=== PATIENT | male | born 1960 | race Two or more races ===

== ENCOUNTER 2019-01-14 08:26 | Inpatient (IN) | payer SELFPAY ==
[~2019-01-14] VITALS: Ht 165.1 cm; Wt 60.8 kg
[2019-01-14] MEDS ORDERED: chlordiazePOXIDE 25mg Cap ORAL ONE (08:30)
[2019-01-14] MEDS ORDERED: NIFEdipine 10mg cap ORAL ONE (08:30)
--- NOTE | 2019-01-14 08:35 | Emergency Room Report ---
History of Present Illness General Chief Complaint: Hypertension Source: Patient Present Illness HPI An approximately 62-year-old male presents with high blood pressure, patient is altered refusing to answer questions may be underlying psychiatric illness versus organic, patient selectively answers questions, he does not give a name, he denies any complaints, he will not state whether he takes any medications or uses any drugs, history is very limited to uncooperative patient. Patient was brought in by EMS patient was sitting at a bus stop, found him to have a elevated blood pressure greater than 200 systolic Allergies: Coded Allergies: UNABLE TO ASSESS (Unverified , 01/14/19) Patient refusing to answer questions Patient History Past Medical History: see triage record Reviewed Nursing Documentation: PMH: Agreed; PSxH: Agreed Nursing Documentation-PMH Past Medical History: No Stated History Review of Systems All Other Systems: limited - Unable to obtain secondary to patient's uncooperativeness Physical Exam Vital Signs Date Time Temp Pulse Resp B/P (MAP) Pulse Ox O2 Delivery O2 Flow Rate FiO2 01/14/19 08:27 84 20 243/161 (188) 97 Room Air Sp02 EP Interpretation: reviewed, normal General Appearance: no apparent distress, alert, other - Patient is disheveled Head: normocephalic, atraumatic Eyes: bilateral eye PERRL, bilateral eye EOMI ENT: uvula midline, moist mucus membranes Neck: supple, thyroid normal, supple/symm/no masses Respiratory: lungs clear, no respiratory distress, no retraction, no accessory muscle use Cardiovascular #1: normal peripheral pulses, regular rate, rhythm, no edema, no gallop, no murmur Gastrointestinal: non tender, soft, no guarding, no rebound Musculoskeletal: normal inspection Neurologic: alert, responsive, other - He is not oriented, he is alert, responsive, moves all 4 extremities spontaneously Psychiatric: mood/affect normal Skin: no rash, warm/dry Procedures Critical Care Time Critical Care Time Given the critical condition in which the patient arrived, the patient was immediately assessed by myself and the nurse, and cardiac monitoring initiated due to the potential for rapid decompensation of the patient's clinical condition. During the course of the patient's stay, I spent a considerable amount of time at the bedside performing serial re-evaluations of the patient's hemodynamic and clinical status because of the recognized potential threat to life or limb in this condition. I then had a chance to review not only all of the available current laboratory and radiographic studies obtained today, but I also reviewed old records available to me at the time. 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 Sequential vital signs were obtained. Patient with hypertensive encephalopathy, with endorgan damage, aspirin, Plavix , Lovenox were given, blood pressure was reduced from systolic 250 down to 201, patient will be admitted to stepdown unit Critical Care time of 34 minutes was performed exclusive of billable procedures. Medical Decision Making Diagnostic Impression: Primary Impression: Hypertension Additional Impressions: Altered mental state Hypertensive encephalopathy NSTEMI (non-ST elevated myocardial infarction) ER Course Deric Martinez, approximately 62-year-old male presents with acute altered mental status, of known unknown etiology, possible infectious versus drug-induced Patient found to have elevated blood pressure, evidence of endorgan damage, patient's blood pressure was immediately controlled and brought down to 201 systolic from 240s, patient will be admitted to stepdown unit, patient endorsed to Dr. Phoenix Multiple re-evaluations of the patient has shown the patient to remain stable, with a little bit of tachycardia. Patient has remained hemodynamically stable Patient admitted to Dr. Phoenix 10:12AM Found to have elevated troponin, CKD, EKG Diagnostic Results EKG Time: 08:40 EP Interpretation: This rhythm, rate 82, ST depressions 1 to aVF, V5 V6, QTC 500, left axis de Rate: normal Rhythm: NSR ST Segments: other - Depressions as stated above, no acute ST elevations Rhythm Strip Diag. Results Rhythm Strip Time: 08:34 EP Interpretation: yes Rate: 89 Rhythm: NSR Chest X-Ray Diagnostic Results Chest X-Ray Diagnostic Results : Chest X-Ray Ordered: Yes # of Views/Limited/Complete: 1 View Indication: Other - Altered mental status EP Interpretation: Yes Interpretation: no consolidation, no effusion, no acute cardiopulmonary disease Impression: No acute disease Electronically Signed by: Harlan Crowe MD CT/MRI/US Diagnostic Results CT/MRI/US Diagnostic Results : Imaging Test Ordered: CT brain Impression Negative for acute intracranial bleed or mass-effect Last Vital Signs Date Time Temp Pulse Resp B/P (MAP) Pulse Ox O2 Delivery O2 Flow Rate FiO2 01/14/19 08:27 84 20 243/161 (188) 97 Room Air Disposition: ADMITTED INPATIENT Halran Crowe M.D. 15, 2019 08:35
--- NOTE | 2019-01-14 08:50 | NUR ---
ED Nurse Note: pt was brought in by ambulance from street. a bystander called 911. pt was sitting on the bus stop half naked and untidy. pt is confused, unable to provide identity, able to obey simple command. pt bp is high, 264/116. pt not in distress. pt appears to be untidy, no top shirt when arrive. seen by ermd, pt able to give urine, iv stablished on pt right ac with good blood return, blood drawn and sent to lab. iv started. pt able to tolerate po meds. will continue to monitor.
--- NOTE | 2019-01-14 08:53 | NUR ---
ED Nurse Note: xray on bedside
[2019-01-14 08:54] LABS: BASOPHILS % (AUTO) 0.6 % (0.0-2.0); EOSINOPHILS % (AUTO) 1.1 % (0.0-3.0); HEMATOCRIT 54.9 % (42.0-52.0); HEMOGLOBIN 17.5 G/DL (14.2-18.0); LYMPHOCYTES % (AUTO) 20.9 % (20.0-45.0); MEAN CORPUSCULAR VOLUME 87 FL (80-99); MONOCYTES % (AUTO) 7.3 % (1.0-10.0); NEUTROPHILS % (AUTO) 70.1 % (45.0-75.0); PLATELET COUNT 164 K/UL (150-450); RED CELL DISTRIBUTION WIDTH 13.2 % (11.6-14.8); WHITE BLOOD COUNT 8.1 K/UL (4.8-10.8)
[2019-01-14 08:58] VITALS: BP 264/116
[2019-01-14 08:59] LABS: APPEARANCE,URINE CLEAR; BILIRUBIN, URINE NEGATIVE (NEGATIVE); COLOR,URINE PALE YELLOW; GLUCOSE, URINE (UA) NEGATIVE (NEGATIVE); KETONES,URINE 2+ (NEGATIVE); LEUKOCYTE ESTERASE ,URINE NEGATIVE (NEGATIVE); NITRITE,URINE NEGATIVE (NEGATIVE); PH,URINE 7 (4.5-8.0); PROTEIN,URINE 3+ (NEGATIVE); UROBILINOGEN,URINE 1 MG/DL (0.0-1.0)
[2019-01-14] MEDS ORDERED: Thiamine 100mg tab ORAL ONE (09:00)
--- NOTE | 2019-01-14 09:00 | NUR ---
ED Nurse Note: pt went to ct with tech
[2019-01-14 09:21] LABS: ANION GAP 7 mmol/L (5-15); BLOOD UREA NITROGEN 30 mg/dL (7-18); CALCIUM 9.7 MG/DL (8.5-10.1); CARBON DIOXIDE 32 MMOL/L (21-32); CHLORIDE 111 MMOL/L (98-107); CREATININE 1.5 MG/DL (0.55-1.30); POTASSIUM 3.5 MMOL/L (3.5-5.1); SODIUM 150 MMOL/L (136-145)
[2019-01-14 09:24] LABS: AMMONIA 11 umol/L (11-32)
--- NOTE | 2019-01-14 09:25 | Diagnostic Imaging Report ---
Indications: Altered mental status Technique: Spiral acquisitions obtained through the brain. Angled axial and coronal 5 x 5 mm slices were reconstructed. Total dose length product 1445.66 mGycm. CTDI vol(s) 70.38 mGy. Dose reduction achieved using automated exposure control Comparison: None. Findings: Focal areas of encephalomalacia are seen in the high posterior parietal lobes bilaterally. Multiple old lacunar infarcts are demonstrated within the basal ganglia bilaterally. No acute intracranial hemorrhage or edema, mass effect, nor midline shift. Normal reveles-white differentiation. There is mild age-related enlargement of the ventricles and extra axial CSF spaces. There is some periventricular deep white matter low-attenuation consistent with chronic microvascular ischemic change. The visualized orbits and sinuses are unremarkable. The mastoids are clear. The calvarium is intact. Impression: Age-related volume loss and chronic microvascular ischemic changes. Old basal ganglia lacunar infarcts bilaterally. 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 Negative for acute intercranial bleed or mass effect The CT scanner at [facility] is accredited by the [employer] and the scans are performed using protocols designed to limit radiation exposure to as low as reasonably achievable to attain images of sufficient resolution adequate for diagnostic evaluation.
--- NOTE | 2019-01-14 09:30 | NUR ---
America werner in EDM - 01/14/19 at 1041 by KAYLEIGHO ED Nurse Note: Dr. Crowe notified regarding pt.'s troponin level of 0.067
--- NOTE | 2019-01-14 09:30 | NUR ---
ED Nurse Note: REPORTED TO DR. SOTO REHARDING PT.'S TROPONIN OF =0.073
[2019-01-14 09:34] LABS: ALANINE AMINOTRANSFERASE 20 U/L (12-78); ALBUMIN 4.3 G/DL (3.4-5.0); ALKALINE PHOSPHATASE 103 U/L (46-116); ASPARTATE AMINO TRANSFERASE 37 U/L (15-37); BILIRUBIN,DIRECT 0.3 MG/DL (0.0-0.3); BILIRUBIN,TOTAL 1.2 MG/DL (0.2-1.0); CREATINE KINASE 755 U/L (26-308)
[2019-01-14] MEDS ORDERED: Enoxaparin 80mg Inj SUBQ ONE (09:45)
[2019-01-14] MEDS ORDERED: Labetalol 5mg/ml 20ml vial IV ONE (09:45)
[2019-01-14 09:54] VITALS: BP 169/101
[2019-01-14 10:23] VITALS: BP 152/71
--- NOTE | 2019-01-14 10:49 | NUR ---
ED Nurse Note: PT IS ADMITTED TO THE HOSPITAL.GAVE REPORT TO VANESSA CHANDRA.
--- NOTE | 2019-01-14 10:50 | Diagnostic Imaging Report ---
Indication: Shortness of breath Technique: One view of the chest Comparison: None Findings: There is a questionable 1.4 cm nodular opacity projected in the right midlung periphery, projected over the scapular spine. The lungs and pleural spaces are otherwise clear. Heart size is upper limits of normal with a left ventricular hypertrophy configuration. The aorta is slightly ectatic calcified and tortuous. Impression: No acute process Questionable right midlung nodule. Further follow-up recommended. This finding was phoned to Dr. Crowe at the time of interpretation
--- NOTE | 2019-01-14 11:11 | NUR ---
ED Nurse Note: gave a courtesy call regarding the changed of admitting physician
[2019-01-14 12:30] VITALS: BP 142/94
--- NOTE | 2019-01-14 14:45 | NUR ---
NURSE NOTES: Patient transferred from [facility] to tele. Received report from PRATEEK Katz. Patient AOx1, open eyes spontaneously, not answering the questions, confused. Patient on room air, IV on right AC 20G, asymptomatic, patent, intact. VS at the time of arrival T 97.5, BP 149/95, on room air O2 Sat 98%, HR 98, no active s/s cardiac, respiratory distress noticed at this time. Bed in lowest position, side rails upx3, call light within reach, bed alarm on. Will continue to monitor.
--- NOTE | 2019-01-14 15:33 | NUR ---
NURSE NOTES: Patient unable to answer questions, will not state whether he takes any medications, unable to obtain past medical history.
[2019-01-14 16:00] VITALS: BP 147/95
--- NOTE | 2019-01-14 16:35 | NUR ---
NURSE NOTES: Per Dr. Marie , full code, social service for homelessness. Order noted, entered, carried out. Dr. Marie made aware patient troponin elevated, no order given at this time. Will continue to monitor.
--- NOTE | 2019-01-14 16:36 | NUR ---
NURSE NOTES: Asked Dr. Marie for psychiatric and cardiology consult, No order given at this time. Will continue to monitor.
[2019-01-14] MEDS: Lisinopril 20mg tab ORAL SCH (17:25)
[2019-01-14] MEDS ORDERED: Enoxaparin 30mg Inj SUBQ SCH (17:45)
--- NOTE | 2019-01-14 19:18 | NUR ---
HAND-OFF: Report given to PRATEEK Moise.
--- NOTE | 2019-01-14 19:20 | NUR ---
NURSE NOTES: Got report from Yenifer CHANDRA. Pt in stable condition. Denies any pain. No s/s of distress or discomfort noted. Pt resting in bed comfortably. Bed in low and locked position, call light within reach, bedside table within reach. Continue to monitor.
[2019-01-14 20:00] VITALS: BP 143/96
--- NOTE | 2019-01-14 20:25 | NUR ---
CASE MANAGEMENT: REVIEW 62Y/M BIBA FROM STREET CC: AMS SI: HTN . NSTEMI T 97.0 HR 109 RR 20 BP 243/161 SAT 97% ROOM AIR NA 150 BUN 30 CR 1.5 TCK 755 AMMONIA 36 TROPONIN 0.073 IS: ASA PO X1 HYDRALAZINE IV X1 LOVENOX SUBQ X1 PLAVIX PO X1 LABETALOL IV X1 NIFEDIPINE PO X1 NS IVF BOLUS X1 PATIENT ADMITTED TO TELEMETRY UNIT 01/14/2019 DCP: PATIENT REPORTS HOMELESSNESS
[2019-01-15] VITALS (8 sets, daily range): BP systolic 127–188; BP diastolic 80–123
--- NOTE | 2019-01-15 | History and Physical Report ---
DATE OF ADMISSION: 01/14/2019 HISTORY OF PRESENT ILLNESS: This is an approximately 62-year-old male, who was brought in by paramedics because of hypertension. The patient refuses to answer questions although his speech is fluent. He appears to be confused. He does not give any meaningful information. He states he has a history of hypertension and that is the only information he was able to give me. Code status believed to be Full in the absence of documentation. PAST MEDICAL HISTORY: Not known. SURGICAL HISTORY: Not known. ALLERGIES: None known. SOCIAL HISTORY: He appears to be homeless with unkempt appearance and dirt and grime under his toenails and fingernails. REVIEW OF SYSTEMS: Unreliable. PHYSICAL EXAMINATION: GENERAL: Reveals a middle-aged male. VITAL SIGNS: Blood pressure earlier was 240/160, currently is 140/90, heart rate is 94, respirations 18, and his O2 saturation is 95% on room air. HEENT: Unremarkable. LUNGS: Clear breath sounds bilaterally. ABDOMEN: Soft. EXTREMITIES: There is no edema. NEUROLOGIC: Nonfocal. General hygiene as discussed above. LABORATORY AND DIAGNOSTIC DATA: Lab testing shows normal CBC and BMP. Sodium is 150 and creatinine 1.5. Troponin 0.07. Alkaline phosphatase 755. Urine toxicology is negative. Urinalysis is negative. IMAGING STUDIES: An X-ray of the chest shows questionable right mid lung nodule, otherwise unremarkable. CT brain is negative except for old basal ganglia infarcts bilaterally. IMPRESSION: 1. Previous CVA. 2. Lung nodule. 3. Hypertensive urgency. 4. Encephalopathy, either hypertensive or toxic metabolic. DISCUSSION: Currently, his tox screen is negative. He does not have the stigmata of liver disease. We will check a serum ammonia. We will provide blood pressure control with lisinopril and clonidine. We will add intravenous fluids for hyponatremia. We will obtain porter sample case social work consult for homelessness. Jarod Marie M.D. DR: MANI JOB#: [id number] CC:
--- NOTE | 2019-01-15 07:00 | NUR ---
HAND-OFF: Report given to Mike CHANDRA. Endorsed plan of care.
--- NOTE | 2019-01-15 07:05 | NUR ---
NURSE NOTES: Received patient and report from PRATEEK Duong. Denies any pain. No s/s of distress or discomfort noted. Patient is resting in bed comfortably. Bed in low and locked position, brakes engaged for safety. Call light within reach, bedside table within reach. Continue with the plan of care.
[2019-01-15 07:18] LABS: BASOPHILS % (AUTO) 0.6 % (0.0-2.0); EOSINOPHILS % (AUTO) 1.8 % (0.0-3.0); HEMATOCRIT 50.9 % (42.0-52.0); HEMOGLOBIN 16.7 G/DL (14.2-18.0); LYMPHOCYTES % (AUTO) 24.5 % (20.0-45.0); MEAN CORPUSCULAR VOLUME 88 FL (80-99); MONOCYTES % (AUTO) 6.4 % (1.0-10.0); NEUTROPHILS % (AUTO) 66.7 % (45.0-75.0); PLATELET COUNT 158 K/UL (150-450); RED BLOOD COUNT 5.81 M/UL (4.70-6.10); RED CELL DISTRIBUTION WIDTH 13.3 % (11.6-14.8); WHITE BLOOD COUNT 9.2 K/UL (4.8-10.8)
[2019-01-15 07:49] LABS: ANION GAP 6 mmol/L (5-15); BLOOD UREA NITROGEN 26 mg/dL (7-18); CALCIUM 9.5 MG/DL (8.5-10.1); CARBON DIOXIDE 30 MMOL/L (21-32); CHLORIDE 113 MMOL/L (98-107); CHOLESTEROL 197 MG/DL (< 200); CREATININE 1.5 MG/DL (0.55-1.30); HDL CHOLESTEROL 34 MG/DL (40-60); POTASSIUM 3.8 MMOL/L (3.5-5.1); SODIUM 149 MMOL/L (136-145); TRIGLYCERIDES 123 MG/DL (30-150)
[2019-01-15] MEDS: Lisinopril 20mg tab ORAL SCH ×2 (08:00→17:29)
--- NOTE | 2019-01-15 08:10 | NUR ---
NURSE NOTES: Patient's BP 188/123. PRN medication given. aware.
--- NOTE | 2019-01-15 09:00 | NUR ---
NURSE NOTES: Rechecked BP 162/100. Will continue to monitor.
--- NOTE | 2019-01-15 10:59 | NUR ---
Social Service Note SW familiar with patient by seeing him often at the bus stop and along [address]. Patient responded to [place] however is not answering questions appropriately. Patient appears he may be responding to internal stimuli. Patient looking around the room making hand gestures and would not provide direct eye contact. Patient with a backpack which is empty. Patient with no identifying paper in pockets of pants and jacket. Dr. Marie also spoke to patient in [place] language and patient didn't respond appropriately. Tox screen is negative. SW will continue to screen patient throughout hospital stay.
[2019-01-15] MEDS: Aspirin EC 325mg tab ORAL SCH (12:26)
--- NOTE | 2019-01-15 12:30 | NUR ---
NURSE NOTES: BP 178/113. PRN med administered. Dr. Marie aware. Will continue to monitor patient.
--- NOTE | 2019-01-15 12:52 | Pulmonology Progress Note ---
Assessment/Plan Assessment/Plan IMPRESSION: 1. Previous CVA. 2. Lung nodule. 3. Hypertensive urgency. 4. Encephalopathy, either hypertensive or toxic metabolic. DISCUSSION: Currently, his tox screen is negative. He does not have the stigmata of liver disease. Await serum ammonia. I will provide blood pressure control with lisinopril and clonidine. Continue intravenous fluids for hypernatremia. Social work consult for homelessness. Subjective Interval Events: None new Constitutional: Reports: no symptoms HEENT: Repors: no symptoms Respiratory: Reports: no symptoms Cardiovascular: Reports: no symptoms Gastrointestinal/Abdominal: Reports: no symptoms Genitourinary: Reports: no symptoms Neurologic: Reports: confusion Allergies: Coded Allergies: UNABLE TO ASSESS (Unverified , 01/14/19) Patient refusing to answer questions Objective Last 24 Hour Vital Signs Date Time Temp Pulse Resp B/P (MAP) Pulse Ox O2 Delivery O2 Flow Rate FiO2 01/15/19 12:26 162/100 01/15/19 09:00 Room Air 01/15/19 08:00 96 01/15/19 08:00 98.0 85 20 188/123 (144) 98 01/15/19 08:00 188/123 01/15/19 07:59 188/123 01/15/19 04:25 83 01/15/19 04:20 97.0 83 20 139/80 (99) 96 01/15/19 01:00 148/90 (109) 01/15/19 00:26 Room Air 01/15/19 00:03 160/100 01/15/19 00:00 98.1 90 20 160/100 (120) 98 01/15/19 00:00 93 01/14/19 21:00 Room Air 01/14/19 20:00 97.8 93 18 143/96 (112) 97 01/14/19 20:00 85 01/14/19 17:25 147/95 01/14/19 16:00 97.7 89 20 147/95 (112) 98 01/14/19 16:00 76 01/14/19 13:03 Room Air Intake and Output 01/14/19 01/15/19 19:00 07:00 Intake Total 120 ml Balance 120 ml Intake Oral 120 ml # Voids 2 2 General Appearance: no acute distress HEENT: normocephalic Respiratory/Chest: chest wall non-tender, lungs clear Cardiovascular: normal peripheral pulses, normal rate Abdomen: normal bowel sounds, no organomegaly Laboratory Tests 01/14/19 17:32: Ammonia 36H 01/15/19 05:19: White Blood Count 9.2, Red Blood Count 5.81, Hemoglobin 16.7, Hematocrit 50.9, Mean Corpuscular Volume 88, Mean Corpuscular Hemoglobin 28.7, Mean Corpuscular Hemoglobin Concent 32.8, Red Cell Distribution Width 13.3, Platelet Count 158, Mean Platelet Volume 10.1, Neutrophils (%) (Auto) 66.7, Lymphocytes (%) (Auto) 24.5, Monocytes (%) (Auto) 6.4, Eosinophils (%) (Auto) 1.8, Basophils (%) (Auto ) 0.6, Sodium Level 149H, Potassium Level 3.8, Chloride Level 113H, Carbon Dioxide Level 30, Anion Gap 6, Blood Urea Nitrogen 26H, Creatinine 1.5H, Estimat Glomerular Filtration Rate 47.7, Glucose Level 82, Calcium Level 9.5, Magnesium Level 2.5H, Triglycerides Level 123, Cholesterol Level 197, LDL Cholesterol 135H, HDL Cholesterol 34L, Cholesterol/HDL Ratio 5.8H, Thyroid Stimulating Hormone (TSH) 0.997 Current Medications Medications (Trade) Dose Ordered Sig/Randall Route PRN Reason Start Time Stop Time Status Last Admin Dose Admin Aspirin (Ecotrin) 325 mg DAILY ORAL 01/15/19 09:00 02/14/19 08:59 01/15/19 12:26 Clonidine HCl (Catapres Tab) 0.1 mg Q4H PRN ORAL SBP>150 mmHg 01/14/19 12:45 02/13/19 12:44 01/15/19 12:26 Dextrose (Dextrose 50%) 25 ml Q30M PRN IV Hypoglycemia 01/14/19 16:45 02/13/19 16:44 Dextrose (Dextrose 50%) 50 ml Q30M PRN IV Hypoglycemia 01/14/19 16:45 02/13/19 16:44 Enoxaparin Sodium (Lovenox) 40 mg Q24H SUBQ 01/15/19 18:00 02/13/19 17:44 Lisinopril (Prinivil) 20 mg BID ORAL 01/14/19 18:00 02/13/19 17:59 01/15/19 08:00 Sodium Chloride 1,000 ml @ 75 mls/hr [id number] IV 01/14/19 17:32 02/13/19 17:31 01/15/19 12:27 Jarod Marie MD Jan 15, 2019 12:52
--- NOTE | 2019-01-15 16:07 | NUR ---
CASE MANAGEMENT:REVIEW 01/15/19 SI: ENCEPHALOPATHY HYPERTENSIVE URGENCY. LUNG NODULE 98.1 89 20 178/113 98% ON RA BUN+26 CR+1.5 IS: ASA PO QD LOVENOX SQ Q24 LISINOPRIL PO BID IVF@75/HR : TELEMETRY STATUS
--- NOTE | 2019-01-15 16:07 | NUR ---
NURSE NOTES: Patient has not had urine output. Bladder scan revealled urine of 488mls. Notified Dr. Marie. New order for in and out catheterization. Will carry out order.
--- NOTE | 2019-01-15 17:00 | NUR ---
NURSE NOTES: In and out catheter done. 500mls urine output. MD notified.
[2019-01-15] MEDS: Enoxaparin 40mg Inj SUBQ SCH (17:30)
--- NOTE | 2019-01-15 18:53 | Cardiology Report ---
APPROVED REPORT EKG Measurement Heart [id number] NM 150P60 [id number] Normal sinus rhythm Possible Left atrial enlargement Prolonged QT Abnormal ECG
--- NOTE | 2019-01-15 19:13 | NUR ---
HAND-OFF: Report given to PRATEEK Osorio. Patient is in stable condition.
--- NOTE | 2019-01-15 19:45 | NUR ---
NURSE NOTES: RECEIVED PATIENT RESTING IN BED, CONFUSED. FALL PRECAUTIONS IN PLACE: CALL LIGHT, BEDSIDE TABLE AND URINAL WITHIN REACH, BED IN LOW POSITION AND BED ALARM ON. WILL CONTINUE WITH PLAN OF CARE.
[2019-01-16] VITALS (7 sets, daily range): BP systolic 131–168; BP diastolic 62–99
--- NOTE | 2019-01-16 02:31 | NUR ---
HAND-OFF: Report given to Adan BUCHANAN RN. PATIENT RESTING IN BED, NO SIGNS OF DISTRESS NOTED.
--- NOTE | 2019-01-16 02:32 | NUR ---
NURSE NOTES: Got report from Raina CHANDRA. Pt in stable condition. Continue to monitor.
--- NOTE | 2019-01-16 07:23 | NUR ---
CASE MANAGEMENT:REVIEW 01/16/19 SI: ENCEPHALOPATHY HYPERTENSIVE URGENCY. LUNG NODULE 98.0 73 18 162/82 98% ON RA IS: ASA PO QD LOVENOX SQ Q24 LISINOPRIL PO BID IVF@75/HR : TELEMETRY STATUS DCP: ??? PLAN: DC PLAN UNCONFIRMED D/T BEING BOTH UNINSURED AND EXPERIENCING LOSS OF MEMORY
--- NOTE | 2019-01-16 07:28 | NUR ---
HAND-OFF: Report given to Mike CHANDRA. Endorsed plan of care.
--- NOTE | 2019-01-16 07:29 | NUR ---
NURSE NOTES: Received patient and report from PRATEEK Palomino. No s/s of pain noted. No s/s of distress or discomfort noted. Patient is resting in bed. Bed in low and locked position, brakes engaged for safety. Call light within reach, bedside table within reach. Will continue with the plan of care.
[2019-01-16 07:34] LABS: BASOPHILS % (AUTO) 0.8 % (0.0-2.0); EOSINOPHILS % (AUTO) 2.7 % (0.0-3.0); HEMATOCRIT 46.5 % (42.0-52.0); HEMOGLOBIN 15.1 G/DL (14.2-18.0); LYMPHOCYTES % (AUTO) 23.2 % (20.0-45.0); MEAN CORPUSCULAR VOLUME 87 FL (80-99); MONOCYTES % (AUTO) 6.9 % (1.0-10.0); NEUTROPHILS % (AUTO) 66.4 % (45.0-75.0); PLATELET COUNT 131 K/UL (150-450); RED BLOOD COUNT 5.34 M/UL (4.70-6.10); RED CELL DISTRIBUTION WIDTH 13.2 % (11.6-14.8); WHITE BLOOD COUNT 6.3 K/UL (4.8-10.8)
[2019-01-16 07:54] LABS: ANION GAP 9 mmol/L (5-15); BLOOD UREA NITROGEN 33 mg/dL (7-18); CALCIUM 8.6 MG/DL (8.5-10.1); CARBON DIOXIDE 27 MMOL/L (21-32); CHLORIDE 109 MMOL/L (98-107); CREATININE 1.4 MG/DL (0.55-1.30); POTASSIUM 3.3 MMOL/L (3.5-5.1); SODIUM 145 MMOL/L (136-145)
[2019-01-16] MEDS: Aspirin EC 325mg tab ORAL SCH (08:08)
[2019-01-16] MEDS: Lisinopril 20mg tab ORAL SCH ×2 (08:14→16:56)
--- NOTE | 2019-01-16 08:28 | Pulmonology Progress Note ---
Assessment/Plan Assessment/Plan IMPRESSION: 1. Previous CVA. 2. Lung nodule. 3. Hypertensive urgency. 4. Encephalopathy, either hypertensive or toxic metabolic. DISCUSSION: Currently, his tox screen is negative. He does not have the stigmata of liver disease. Borderline high serum ammonia. I will provide blood pressure control with lisinopril and clonidine. Continue intravenous fluids for hypernatremia. Social work consult for homelessness. Subjective Interval Events: No change; ammonia borderline high Constitutional: Reports: no symptoms HEENT: Repors: no symptoms Respiratory: Reports: no symptoms Cardiovascular: Reports: no symptoms Gastrointestinal/Abdominal: Reports: no symptoms Genitourinary: Reports: no symptoms Allergies: Coded Allergies: UNABLE TO ASSESS (Unverified , 01/14/19) Patient refusing to answer questions Objective Last 24 Hour Vital Signs Date Time Temp Pulse Resp B/P (MAP) Pulse Ox O2 Delivery O2 Flow Rate FiO2 01/16/19 08:16 168/99 01/16/19 08:14 168/99 01/16/19 04:50 155/86 (109) 01/16/19 04:19 98.0 73 18 162/82 (108) 98 01/16/19 04:01 77 01/16/19 03:47 162/82 01/16/19 00:00 63 01/16/19 00:00 98.9 58 18 131/62 (85) 96 01/15/19 21:38 159/83 01/15/19 21:00 Room Air 01/15/19 20:00 87 01/15/19 20:00 97.5 87 18 159/83 (108) 95 01/15/19 17:29 127/82 01/15/19 16:00 66 01/15/19 16:00 97.7 77 20 127/82 (97) 01/15/19 12:26 162/100 01/15/19 12:00 88 01/15/19 12:00 98.1 89 20 178/113 (134) 98 01/15/19 09:00 92 162/100 (120) 01/15/19 09:00 Room Air Intake and Output 01/15/19 01/16/19 19:00 07:00 Intake Total 795 ml 475 ml Output Total 500 ml Balance 295 ml 475 ml Intake Oral 720 ml IV Total 75 ml 475 ml Output Urine Total 500 ml # Voids 5 General Appearance: no acute distress HEENT: normocephalic Respiratory/Chest: chest wall non-tender, lungs clear Cardiovascular: normal peripheral pulses, normal rate Abdomen: normal bowel sounds Extremities: no cyanosis Microbiology Date/Time Source Procedure Growth Status 01/14/19 09:00 Rectum VRE Culture - Final NO VANCOMYCIN RESISTANT ENTEROCOCCUS ... Resulted 01/14/19 09:00 Rectum Pending Resulted Laboratory Tests 01/16/19 05:13: White Blood Count 6.3, Red Blood Count 5.34, Hemoglobin 15.1, Hematocrit 46.5, Mean Corpuscular Volume 87, Mean Corpuscular Hemoglobin 28.2, Mean Corpuscular Hemoglobin Concent 32.4, Red Cell Distribution Width 13.2, Platelet Count 131L, Mean Platelet Volume 9.9, Neutrophils (%) (Auto) 66.4, Lymphocytes (%) (Auto) 23.2, Monocytes (%) (Auto) 6.9, Eosinophils (%) (Auto) 2.7, Basophils (%) (Auto ) 0.8, Sodium Level 145, Potassium Level 3.3L, Chloride Level 109H, Carbon Dioxide Level 27, Anion Gap 9, Blood Urea Nitrogen 33H, Creatinine 1.4H, Estimat Glomerular Filtration Rate 51.7, Glucose Level 80, Calcium Level 8.6 Current Medications Medications (Trade) Dose Ordered Sig/Randall Route PRN Reason Start Time Stop Time Status Last Admin Dose Admin Aspirin (Ecotrin) 325 mg DAILY ORAL 01/15/19 09:00 02/14/19 08:59 01/16/19 08:08 Clonidine HCl (Catapres Tab) 0.1 mg Q4H PRN ORAL SBP>150 mmHg 01/14/19 12:45 02/13/19 12:44 01/16/19 08:16 Dextrose (Dextrose 50%) 25 ml Q30M PRN IV Hypoglycemia 01/14/19 16:45 02/13/19 16:44 Dextrose (Dextrose 50%) 50 ml Q30M PRN IV Hypoglycemia 01/14/19 16:45 02/13/19 16:44 Enoxaparin Sodium (Lovenox) 40 mg Q24H SUBQ 01/15/19 18:00 02/13/19 17:44 01/15/19 17:30 Lisinopril (Prinivil) 20 mg BID ORAL 01/14/19 18:00 02/13/19 17:59 01/16/19 08:14 Sodium Chloride 1,000 ml @ 75 mls/hr [id number] IV 01/14/19 17:32 02/13/19 17:31 01/15/19 21:38 Jarod Marie MD Jan 16, 2019 08:28
[2019-01-16] MEDS ORDERED: 1/2 NS 1000ml IV ONE (15:32)
--- NOTE | 2019-01-16 16:51 | NUR ---
Social Service Note Patient continues to respond to internal stimuli. Patient not answering questions appropriately. However when asked his name he states Scott, patient couldn't provide spelling, last name or date of . Will continue to follow up.
[2019-01-16] MEDS: Enoxaparin 40mg Inj SUBQ SCH (16:57)
--- NOTE | 2019-01-16 19:58 | NUR ---
HAND-OFF: Report given to PRATEEK Clemente.Patient is in stable condition.
--- NOTE | 2019-01-16 20:00 | NUR ---
NURSE NOTES: pt in bed, pt alert and confused. no acute distress noted. falling precaution in place: bed locked an lowest position. bedside rail up x2. will round pt hourly to ensure pt safety and assess for any change in condition.
[2019-01-17] VITALS: BP 169/106
--- NOTE | 2019-01-17 | NUR ---
NURSE NOTES: pt's BP. PRN med administered. will continue to monitor for any change in condition.
[2019-01-17 04:00] VITALS: BP 148/99
--- NOTE | 2019-01-17 04:00 | NUR ---
NURSE NOTES: pt sleeping,no change in condition. will continue to monitor pt for any change in condition.
--- NOTE | 2019-01-17 06:53 | NUR ---
NURSE NOTES: pt remains stable, no change in condition. falling precaution in place: bed locked and lowest position, bedside rail up x2, call light within reach. all needs met during my shift. will endorse plan of care to incoming nurse.
[2019-01-17 07:41] LABS: ANION GAP 8 mmol/L (5-15); BLOOD UREA NITROGEN 29 mg/dL (7-18); CARBON DIOXIDE 27 MMOL/L (21-32); CHLORIDE 109 MMOL/L (98-107); CREATININE 1.3 MG/DL (0.55-1.30); POTASSIUM 3.5 MMOL/L (3.5-5.1); SODIUM 144 MMOL/L (136-145)
--- NOTE | 2019-01-17 07:55 | NUR ---
CASE MANAGEMENT:REVIEW 01/17/19 SI: ENCEPHALOPATHY HYPERTENSIVE URGENCY. LUNG NODULE 97.9 70 18 148/99 100% ON RA IS: ASA PO QD LOVENOX SQ Q24 LISINOPRIL PO BID IVF@75/HR : TELEMETRY STATUS DCP: ??? PLAN: DC PLAN UNCONFIRMED D/T BEING BOTH UNINSURED AND EXPERIENCING LOSS OF MEMORY CONTINUE HYDRATION AND CARDIAC MONITORING
[2019-01-17 08:00] VITALS: BP 165/107
--- NOTE | 2019-01-17 08:33 | NUR ---
pt. in bed awake resting. Pt on childbirth educator no cardiac or respiratory distress. Call light with in reach, bed locked in lowest position. Pt does not know who he is where he is at or why he is here but is able to talk. Pt not complaining of pain. Will continue to follow plan of care.
[2019-01-17] MEDS: Aspirin EC 325mg tab ORAL SCH (09:30)
[2019-01-17] MEDS: Lisinopril 20mg tab ORAL SCH ×2 (09:34→16:59)
--- NOTE | 2019-01-17 09:59 | Pulmonology Progress Note ---
Assessment/Plan Assessment/Plan IMPRESSION: 1. Previous CVA. 2. Lung nodule. 3. Hypertensive urgency. 4. Encephalopathy, either hypertensive or toxic metabolic. DISCUSSION: Currently, his tox screen is negative. He does not have the stigmata of liver disease. Borderline high serum ammonia. I will provide blood pressure control with lisinopril and clonidine. Continue intravenous fluids for hypernatremia. Social work consult for homelessness. Subjective Interval Events: None new Constitutional: Reports: no symptoms HEENT: Repors: no symptoms Respiratory: Reports: no symptoms Cardiovascular: Reports: no symptoms Gastrointestinal/Abdominal: Reports: no symptoms Allergies: Coded Allergies: UNABLE TO ASSESS (Unverified , 01/14/19) Patient refusing to answer questions Objective Last 24 Hour Vital Signs Date Time Temp Pulse Resp B/P (MAP) Pulse Ox O2 Delivery O2 Flow Rate FiO2 01/17/19 09:34 165/107 01/17/19 04:00 67 01/17/19 04:00 97.9 70 18 148/99 (115) 100 01/17/19 00:05 169/109 01/17/19 00:00 68 01/17/19 00:00 97.8 75 18 169/106 (127) 99 01/16/19 21:00 Room Air 01/16/19 20:00 97.1 71 18 149/99 (116) 99 01/16/19 20:00 68 01/16/19 16:56 149/82 01/16/19 16:00 97.5 66 18 133/77 (95) 97 01/16/19 16:00 64 01/16/19 12:00 97.2 65 18 132/92 (105) 98 01/16/19 12:00 71 Intake and Output 01/16/19 01/17/19 19:00 07:00 Intake Total 360 ml Output Total 500 ml Balance -140 ml Intake Oral 360 ml Output Urine Total 500 ml # Voids 4 3 General Appearance: no acute distress HEENT: normocephalic Respiratory/Chest: chest wall non-tender, lungs clear Cardiovascular: normal peripheral pulses, normal rate Abdomen: normal bowel sounds Laboratory Tests 01/17/19 05:30: Sodium Level 144, Potassium Level 3.5, Chloride Level 109H, Carbon Dioxide Level 27, Anion Gap 8, Blood Urea Nitrogen 29H, Creatinine 1.3, Estimat Glomerular Filtration Rate 56.3, Glucose Level 76, Calcium Level 9.0 Current Medications Medications (Trade) Dose Ordered Sig/Randall Route PRN Reason Start Time Stop Time Status Last Admin Dose Admin Aspirin (Ecotrin) 325 mg DAILY ORAL 01/15/19 09:00 02/14/19 08:59 01/17/19 09:30 Clonidine HCl (Catapres Tab) 0.1 mg Q4H PRN ORAL SBP>150 mmHg 01/14/19 12:45 02/13/19 12:44 01/17/19 00:05 Dextrose (Dextrose 50%) 25 ml Q30M PRN IV Hypoglycemia 01/14/19 16:45 02/13/19 16:44 Dextrose (Dextrose 50%) 50 ml Q30M PRN IV Hypoglycemia 01/14/19 16:45 02/13/19 16:44 Enoxaparin Sodium (Lovenox) 40 mg Q24H SUBQ 01/15/19 18:00 02/13/19 17:44 01/16/19 16:57 Lisinopril (Prinivil) 20 mg BID ORAL 01/14/19 18:00 02/13/19 17:59 01/17/19 09:34 Sodium Chloride 1,000 ml @ 75 mls/hr [id number] IV 01/14/19 17:32 02/13/19 17:31 01/17/19 06:21 Jarod Marie MD Jan 17, 2019 09:59
[2019-01-17 12:00] VITALS: BP 136/97
--- NOTE | 2019-01-17 12:39 | NUR ---
NURSE NOTES: pt continuously keeps taking off harm reduction worker. put harm reduction worker on pt again.
--- NOTE | 2019-01-17 12:46 | NUR ---
NURSE NOTES: Pt unable to state a safe place or where he might get food from. Pt maybe Gravely disabled. aware of nursing assessment.
--- NOTE | 2019-01-17 15:54 | NUR ---
Social Service Note Patient continues not to answer questions appropriately. Recommend psych consultation and PT eval. Will continue to monitor. Unable to establish patient's name.
[2019-01-17 16:00] VITALS: BP 166/99
--- NOTE | 2019-01-17 16:24 | NUR ---
SPEECH PATHOLOGY: EVALUATION ONLY: BEDSIDE SWALLOW EVALUATION COMPLETED POST CHART REVIEW AND INTERVIEW WITH RN. THIS PATIENT PRESENTS WITH EFFICACY OF OROPHARYNGEAL PHASE OF SWALLOW INTACT. NO OVERT S/S OF ASPIRATION WITH LIMITED P.O. TRIALS OF THIN LIQUID, SOFT SOLID AND PUREE. HOWEVER, HIS SIGNIFICANT BEHAVIOR/COGNITIVE DEFICITS PREVENT HIM FROM SELF FEEDING AND HE IS OPPOSITIONAL TO STAFF WHO ATTEMPT TO FEED HIM. HIS COGNITIVE/PSYCHIATRIC DEFICITS REQUIRE A SUPPORTED LIVING ENVIRONMENT IN ORDER TO MAINTAIN HIS HEALTH/SAFETY IN THE COMMUNITY. NO FURTHER SKILLED ST SERVICES APPEAR TO BE NEEDED AT THIS TIME. THANK YOU FOR THIS REFERRAL. D/W RN
[2019-01-17] MEDS: Enoxaparin 40mg Inj SUBQ SCH (17:01)
--- NOTE | 2019-01-17 17:05 | NUR ---
NURSE NOTES: pt took off clerk secretary again as well as IV access.
--- NOTE | 2019-01-17 18:00 | Consultation ---
DATE OF CONSULTATION: 01/17/2019 CONSULTING PHYSICIAN: Ivonne York M.D. HISTORY OF PRESENT ILLNESS: This is approximately middle-aged man who has been hospitalized since 01/14/2019. The patient is disheveled, malodorous, unable to provide any history or answer the questions appropriately. His speech is disorganized and he is jumping from one subject to another. The patient has memory impairment and anxious and is unable to provide any meaningful information. The patient has been observed around the hospital in the past and he is a homeless person. PAST PSYCHIATRIC HISTORY: Unknown. PAST MEDICAL HISTORY: Unknown. ALLERGIES: No known drug allergies. SUBSTANCE ABUSE HISTORY: The patient's system is negative for any illicit drug use or alcohol. MENTAL STATUS EXAMINATION: The patient is alert, oriented x0. Mood is neutral. Affect is flat. Thought process is disorganized. Thought content, no suicidal or homicidal ideation. Cognition is impaired. ASSESSMENT: Valentine I Schizophrenia, disorganized type. Valentine II Deferred. Valentine III None known. Valentine IV Moderate. Valentine V 10. PLAN: 1. We will start the patient on risperidone 2 mg at bedtime. 2. The patient lacks capacity to make decisions. 3. We will continue to follow and readjust the medications. Ivonne York M.D. DR: WENDY JOB#: [id number] CC:
--- NOTE | 2019-01-17 19:45 | NUR ---
NURSE NOTES: Received report from PRATEEK Zepeda. Patient in bed awake showing no signs of acute distress. Respiration even and non labored on room air. No sob noted. Pt. noted for removing laboratory monitor and IV consistently, MD Linda made aware. New orders received and carried out. Bed side rails up x3, Alarm on zone 2, wheels locked, bed in lowest position. Call light within reach. Will continue plan of care.
[2019-01-17 20:00] VITALS: BP 161/114
--- NOTE | 2019-01-17 20:17 | NUR ---
HAND-OFF: Report given to Meghan CHANDRA. pt in stable condition.
[2019-01-17] MEDS ORDERED: Haloperidol 5mg/ml Inj IM SCH (21:15)
[2019-01-17] MEDS ORDERED: LORazepam Inj 2mg/ml 1ml IM SCH (21:15)
[2019-01-17] MEDS ORDERED: DiphenhydrAMINE 50mg/ml Inj IM SCH (21:15)
[2019-01-18] VITALS: BP 135/89
--- NOTE | 2019-01-18 02:28 | NUR ---
NURSE NOTES: Pt. in bed asleep. VS stable. no episode of agitation, or pulling off device. Will continue to monitor.
[2019-01-18 04:00] VITALS: BP 145/86
--- NOTE | 2019-01-18 07:29 | NUR ---
HAND-OFF: Report given to PRATEEK Zepeda.
--- NOTE | 2019-01-18 07:39 | NUR ---
CASE MANAGEMENT:REVIEW 01/18/19 SI: ENCEPHALOPATHY HYPERTENSIVE URGENCY. LUNG NODULE 98.1 88 18 145/86 97% ON RA IS: RISPERDAL PO QHS ASA PO QD LOVENOX SQ Q24 LISINOPRIL PO BID IVF@75/HR : TELEMETRY STATUS DCP: ??? PLAN: DC PLAN UNCONFIRMED D/T BEING BOTH UNINSURED AND EXPERIENCING LOSS OF MEMORY CONTINUE HYDRATION AND CARDIAC MONITORING
[2019-01-18 08:00] VITALS: BP 121/90
--- NOTE | 2019-01-18 08:01 | NUR ---
NURSE NOTES: Pt is calmly sleeping in bed. child monitor is on, pt does not show any sign of cardiac or respiratory distress. Bed locked and in lowest position. Call light with in reach. Pt IV is patent running fluids. Will continue to follow plan of care.
[2019-01-18] MEDS: Lisinopril 20mg tab ORAL SCH ×2 (09:49→17:55)
[2019-01-18] MEDS: Aspirin EC 325mg tab ORAL SCH (09:49)
[2019-01-18 12:00] VITALS: BP 136/79
--- NOTE | 2019-01-18 12:09 | NUR ---
pt has been very sleepy all morning fed him breakfast 2 spoonfuls and at lunch he ate his soup. Pt was able to eat chew and swallow his food but didn't want to open his eyes.
--- NOTE | 2019-01-18 13:32 | NUR ---
PT NOTE Received MD order for PT evaluation. Attempted several times to see patient for PT evaluation. Patient sleeping, unable to arouse patient with verbal or tactile stimuli. Per Katelyn CHANDRA, patient medicated earlier with Ativan. Will re-attempt tomorrow.
--- NOTE | 2019-01-18 13:54 | Pulmonology Progress Note ---
Assessment/Plan Assessment/Plan IMPRESSION: 1. Previous CVA. 2. Lung nodule. 3. Hypertensive urgency. 4. Acute on Chronic Encephalopathy, either hypertensive or toxic metabolic. DISCUSSION: Currently, his tox screen is negative. He does not have the stigmata of liver disease. Borderline high serum ammonia. I will provide blood pressure control with lisinopril and clonidine. Continue intravenous fluids for hypernatremia. Social work consult for homelessness. Subjective Interval Events: Seen y psych; started on resperidal Constitutional: Reports: no symptoms HEENT: Repors: no symptoms Respiratory: Reports: no symptoms Cardiovascular: Reports: no symptoms Gastrointestinal/Abdominal: Reports: no symptoms Allergies: Coded Allergies: UNABLE TO ASSESS (Unverified , 01/14/19) Patient refusing to answer questions Objective Last 24 Hour Vital Signs Date Time Temp Pulse Resp B/P (MAP) Pulse Ox O2 Delivery O2 Flow Rate FiO2 01/18/19 12:00 98.3 83 18 136/79 (98) 95 01/18/19 12:00 63 01/18/19 09:49 121/90 01/18/19 09:00 Room Air 01/18/19 08:00 81 01/18/19 08:00 96.3 80 20 121/90 (100) 96 01/18/19 04:00 85 01/18/19 04:00 98.1 88 18 145/86 (105) 97 01/18/19 00:00 97.9 96 24 135/89 (104) 97 01/18/19 00:00 94 01/17/19 21:00 Room Air 01/17/19 20:00 97.8 84 24 161/114 (130) 97 01/17/19 20:00 73 01/17/19 16:59 166/99 01/17/19 16:00 97.1 70 20 166/99 (121) 95 01/17/19 16:00 80 Intake and Output 01/17/19 01/18/19 19:00 07:00 Intake Total 220 ml 296.25 ml Balance 220 ml 296.25 ml Intake Oral 220 ml IV Total 296.25 ml # Voids 1 2 General Appearance: no acute distress HEENT: normocephalic Respiratory/Chest: chest wall non-tender, lungs clear Cardiovascular: normal peripheral pulses Abdomen: normal bowel sounds Current Medications Medications (Trade) Dose Ordered Sig/Randall Route PRN Reason Start Time Stop Time Status Last Admin Dose Admin Aspirin (Ecotrin) 325 mg DAILY ORAL 01/15/19 09:00 02/14/19 08:59 01/18/19 09:49 Clonidine HCl (Catapres Tab) 0.1 mg Q4H PRN ORAL SBP>150 mmHg 01/14/19 12:45 02/13/19 12:44 01/17/19 00:05 Dextrose (Dextrose 50%) 25 ml Q30M PRN IV Hypoglycemia 01/14/19 16:45 02/13/19 16:44 Dextrose (Dextrose 50%) 50 ml Q30M PRN IV Hypoglycemia 01/14/19 16:45 02/13/19 16:44 Enoxaparin Sodium (Lovenox) 40 mg Q24H SUBQ 01/15/19 18:00 02/13/19 17:44 01/16/19 16:57 Lisinopril (Prinivil) 20 mg BID ORAL 01/14/19 18:00 02/13/19 17:59 01/18/19 09:49 Risperidone (RisperDAL) 2 mg BEDTIME ORAL 01/17/19 21:00 02/16/19 20:59 01/17/19 21:48 Sodium Chloride 1,000 ml @ 75 mls/hr [id number] IV 01/14/19 17:32 02/13/19 17:31 01/18/19 02:03 Jarod Marie MD Jan 18, 2019 13:54
--- NOTE | 2019-01-18 14:50 | NUR ---
NURSE NOTES: Pt had 2 voids, changed pt and bedding for him. He did not open his eyes and was very calm while we provided care.
--- NOTE | 2019-01-18 15:51 | NUR ---
Social Service Note Unable to identify patient. [facility] EW closing case at this time. Will continue to monitor.
[2019-01-18 16:00] VITALS: BP 143/87
[2019-01-18] MEDS: Enoxaparin 40mg Inj SUBQ SCH (17:56)
--- NOTE | 2019-01-18 19:30 | NUR ---
NURSE NOTES: Received patient from Katelyn CHANDRA. Patient in bed, on room air, no s/s respiratory distress. Bed in low position, locked, bed alarm on, call light within reach. Patient is alert and responsive, follows simple commands to move extremities, does not answer verbally, not even his name. Patient keeps his eyes closed all the time. IV on left forearm, dressing intact.
--- NOTE | 2019-01-18 19:40 | NUR ---
HAND-OFF: Report given to PRATEEK Mast pt in stable condition.
[2019-01-18 20:00] VITALS: BP 134/63
[2019-01-19] VITALS (13 sets, daily range): BP systolic 104–203; BP diastolic 71–125
--- NOTE | 2019-01-19 04:15 | Progress Note ---
DATE: 01/14/2019 SUBJECTIVE: The patient is calmer today. However, last night, he had an episode of agitation and received a cocktail shot. He is still confused, unable to answer the question. MENTAL STATUS EXAMINATION: The patient is alert, confused, disoriented. Mood is agitated. Affect is flat. Thought process, there is a paucity of thought content. Thought content, no suicidal or homicidal ideation. ASSESSMENT: Schizophrenia, disorganized type. The patient is unable to provide any self-care plan. PLAN: We will continue the current medications. Provide the patient with reality orientation and supportive therapy. Ivonne York M.D. DR: ANILA JOB#: [id number] CC:
--- NOTE | 2019-01-19 08:03 | Nephrology Progress Note ---
Assessment/Plan Assessment/Plan: A/P 1. Previous CVA. 2. Lung nodule. 3. Hypertensive urgency. Resolved 4. Acute on Chronic Encephalopathy - either hypertensive or toxic metabolic. Continue Social work consult for homelessness and placement Subjective Date patient seen: Jan 19, 2019 Time patient seen: 08:01 ROS Limited/Unobtainable: No Allergies: Coded Allergies: UNABLE TO ASSESS (Unverified , 01/14/19) Patient refusing to answer questions Subjective Patient without overt complaints Objective Last 24 Hour Vital Signs Date Time Temp Pulse Resp B/P (MAP) Pulse Ox O2 Delivery O2 Flow Rate FiO2 01/19/19 04:00 97.6 83 20 131/84 (100) 95 01/19/19 03:41 61 01/19/19 01:19 154/94 01/19/19 00:00 72 01/19/19 00:00 97.2 70 18 154/94 (114) 97 01/18/19 23:35 72 01/18/19 21:00 Room Air 01/18/19 20:00 98.6 84 16 134/63 (86) 98 01/18/19 19:29 57 01/18/19 17:55 143/87 01/18/19 16:00 62 01/18/19 16:00 98.6 68 18 143/87 (105) 100 01/18/19 12:00 98.3 83 18 136/79 (98) 95 01/18/19 12:00 63 01/18/19 09:49 121/90 01/18/19 09:00 Room Air Intake and Output 01/18/19 01/19/19 18:59 06:59 Intake Total 120 ml Balance 120 ml Intake Oral 120 ml # Voids 2 Height (Feet): 5 Height (Inches): 5.00 Weight (Pounds): 131 General Appearance: no apparent distress EENT: normal ENT inspection Neck: normal alignment, supple Cardiovascular: normal rate, regular rhythm Respiratory/Chest: lungs clear, normal breath sounds Abdomen: non tender, soft Edema: no edema noted Arm (L), no edema noted Arm (R), no edema noted Leg (L), no edema noted Leg (R), no edema noted Pedal (L), no edema noted Pedal (R), no edema noted Generalized César Quezada MD Jan 19, 2019 08:03
--- NOTE | 2019-01-19 08:11 | NUR ---
NURSE NOTES: Nurse report given by PRATEEK Doyle. Patient is awake and agitated. No sign of distress or SOB. Bed at lowest position, break engaged and call light within reach. AO x 0. Patient is confused and unable to tell his name and where he is. Will continue to monitor.
--- NOTE | 2019-01-19 09:00 | NUR ---
NURSE NOTES: Received Vivek's report about patient has not urinate the past 12 hours, he did bladder scan and patient retained 500ml. He tried straight cathether and nothing came out. I scanned his bladder again and he retained 700cc and his BP is 205/125, HR 97. I tried to do straight catheter and there is no flash back and met resistance, I stopped and withdrew, there is some blood at the tip noted. I contacted Dr. Quezada and he ordered Coreg 12.5mg PO BID, the first dose ordered at 0900; Flomax 0.4mg PO QHS, the first dose ordered at 0930. Dr. Quezada also ordered for urologist senior controls engineer. Dr Roberts is the urologist. I called his office and his staff member Biju took the call and stated: will page Dr. Roberts. Endorsed plan and waiting for Dr. Roberts to come see the patient.
[2019-01-19] MEDS: Aspirin EC 325mg tab ORAL SCH (09:22)
[2019-01-19] MEDS: Carvedilol 12.5mg tab ORAL SCH ×2 (09:24→20:35)
[2019-01-19] MEDS: Lisinopril 20mg tab ORAL SCH ×2 (09:24→17:37)
--- NOTE | 2019-01-19 10:00 | NUR ---
NURSE NOTES: Patient voided over the bed. Bladder scanned and he's having 87cc in the bladder. Notified Dr. Quezada and he acknowledge. Dr. Roberts called back and ordered d/c straight catheter. Order is acknowledge and carried out.
--- NOTE | 2019-01-19 14:24 | NUR ---
NURSE NOTES: Patient pulled out his IV and heart monitor. I contacted Dr. Sellers regarding his condition and he order restraint order putting in for him.
--- NOTE | 2019-01-19 16:47 | NUR ---
PT Note PT eval completed, treatment initiated. Patient is able to follow instructions but is o x 0. Patient was able to take 2 steps with mod/maxA. Patient needs PT to increase his muscle strength and balance to improve his functional mobility. Addendum: 01/19/19 at 1648 by DAYANNA MARTINEZ PT Amended: Links added.
[2019-01-19] MEDS: Enoxaparin 40mg Inj SUBQ SCH (17:38)
--- NOTE | 2019-01-19 19:15 | NUR ---
NURSE NOTES: Received patient from Cecilia CHANDRA. Patient in bed, awake, oriented x0, speaking non sensically. States his name is "Ali maybe." Anxious, resistant to care, slaps away staff's hands when attempting to give care.
--- NOTE | 2019-01-19 19:17 | NUR ---
HAND-OFF: Report given to PRATEEK Doyle. Patient's in stable condition, no sign of acute distress or SOB.
[2019-01-19] MEDS ORDERED: Tamsulosin 0.4mg cap ORAL SCH (21:00)
--- NOTE | 2019-01-19 22:40 | NUR ---
NURSE NOTES: Patient agitated, pulling off restraints, banging on the rails, tossing and turning, throwing linen on the floor. Notified Dr. York of patient's escalating agitation and that he is not redirectable. Received orders for Haldol 10mg, Ativan 2mg, Benadryl 50mg IM x1, HOB> 30 degrees, vitals q 15 minutes for 1 hour.
[2019-01-19] MEDS ORDERED: DiphenhydrAMINE 50mg/ml Inj IM ONE (22:45)
[2019-01-19] MEDS ORDERED: LORazepam Inj 2mg/ml 1ml IM ONE (22:45)
[2019-01-19] MEDS ORDERED: Haloperidol 5mg/ml Inj IM ONE (22:45)
--- NOTE | 2019-01-19 23:00 | NUR ---
NURSE NOTES: Administered IM medications, Vitals: 98.1- 80-28-203/124-96% on room air. Patient still agitated, kicking and pulling at restraints. Staff remained at bedside for safety. Addendum: 01/19/19 at 2311 by Vivek Mast RN NURSE NOTES: HOB >30 degrees.
--- NOTE | 2019-01-19 23:17 | NUR ---
NURSE NOTES: Patient still awake, moving around in bed, tugging at restraints.
--- NOTE | 2019-01-19 23:32 | NUR ---
NURSE NOTES: Patient appears more calm, eyes closed, light movements of legs, arms and head, moans occasionally. HOB >30 degrees, respirations even, unlabored, o2sat 95%.
--- NOTE | 2019-01-19 23:57 | NUR ---
NURSE NOTES: Vitals stable, WNL, see flow sheet. Patient asleep, snoring. On room air, O2sat 98%, HOB >30 degrees, no s/s of respiratory distress.
[2019-01-20 01:00] VITALS: BP 138/85
[2019-01-20 04:00] VITALS: BP 131/79
--- NOTE | 2019-01-20 07:25 | NUR ---
NURSE NOTES: Pt in bed in low position, HOB in semi fowlers position, restraints started on 01/19/19 at 1452 for combative bx, IV intact and patent, pt has no orientation and is a poor historian, labs have not been run since 01/16/19, no bowel movement since 01/14/19, pt has been eating and is a 1:1 feeder, currently no s/s of distress or sob noted. Last night nurse reported that the pt was combative and haldol ativan and benadryl for agitation, saw nursing order for further instructions.
--- NOTE | 2019-01-20 07:38 | NUR ---
HAND-OFF: Report given to Octavio CHANDRA. Plan of care endorsed.
[2019-01-20 08:22] VITALS: BP 165/95
--- NOTE | 2019-01-20 08:43 | Nephrology Progress Note ---
Assessment/Plan Assessment/Plan: A/P 1. Previous CVA. 2. Lung nodule. 3. Hypertensive urgency. Resolved. Coreg added 4. Acute on Chronic Encephalopathy - either hypertensive or toxic metabolic. - sedated ABD Xray and labs ordered today Subjective Date patient seen: Jan 20, 2019 Time patient seen: 08:41 ROS Limited/Unobtainable: Yes Allergies: Coded Allergies: UNABLE TO ASSESS (Unverified , 01/14/19) Patient refusing to answer questions Subjective Patient without overt complaints and remains sedated Objective Last 24 Hour Vital Signs Date Time Temp Pulse Resp B/P (MAP) Pulse Ox O2 Delivery O2 Flow Rate FiO2 01/20/19 08:28 Room Air 01/20/19 08:22 97.8 69 18 165/95 (118) 97 01/20/19 04:00 97.7 69 18 131/79 (96) 96 01/20/19 04:00 65 01/20/19 03:47 65 01/20/19 01:00 97.8 70 18 138/85 (102) 96 01/19/19 23:56 98.1 70 16 117/77 (90) 98 01/19/19 23:47 72 01/19/19 23:43 97.9 72 16 104/71 (82) 98 01/19/19 23:31 97.3 73 17 152/100 (117) 95 01/19/19 23:16 98.4 81 20 190/125 (146) 97 01/19/19 23:00 98.1 80 28 203/124 (150) 96 01/19/19 21:58 71 121/78 (92) 01/19/19 21:00 98.4 95 18 171/102 (125) 96 95 01/19/19 21:00 Room Air 01/19/19 20:35 186/120 (142) 01/19/19 20:35 96 186/120 01/19/19 19:27 94 01/19/19 17:37 183/103 01/19/19 17:37 183/103 01/19/19 16:00 85 01/19/19 16:00 97.7 84 18 183/103 (129) 98 01/19/19 12:00 98.0 77 18 186/110 (135) 97 01/19/19 12:00 78 7/20/19 09:24 97 205/125 01/19/19 09:24 205/125 01/19/19 09:23 205/125 01/19/19 09:00 Room Air Intake and Output 01/19/19 01/20/19 18:59 06:59 Intake Total 460 ml Balance 460 ml Intake Oral 460 ml # Voids 1 2 Height (Feet): 5 Height (Inches): 5.00 Weight (Pounds): 131 General Appearance: no apparent distress EENT: normal ENT inspection Neck: normal alignment, supple Cardiovascular: normal rate, regular rhythm Respiratory/Chest: lungs clear Abdomen: non tender, soft Edema: no edema noted Arm (L), no edema noted Arm (R), no edema noted Leg (L), no edema noted Leg (R), no edema noted Pedal (L), no edema noted Pedal (R), no edema noted Generalized César Quezada MD Jan 20, 2019 08:43
[2019-01-20 09:04] LABS: BASOPHILS % (AUTO) 0.9 % (0.0-2.0); EOSINOPHILS % (AUTO) 2.4 % (0.0-3.0); HEMATOCRIT 50.5 % (42.0-52.0); HEMOGLOBIN 16.5 G/DL (14.2-18.0); MEAN CORPUSCULAR VOLUME 86 FL (80-99); MONOCYTES % (AUTO) 6.9 % (1.0-10.0); NEUTROPHILS % (AUTO) 68.7 % (45.0-75.0); PLATELET COUNT 131 K/UL (150-450); RED CELL DISTRIBUTION WIDTH 12.8 % (11.6-14.8); WHITE BLOOD COUNT 8.8 K/UL (4.8-10.8)
--- NOTE | 2019-01-20 09:10 | NUR ---
NURSE NOTES: received order from Dr Ornelas to transfer pt to [facility].
[2019-01-20 09:16] LABS: ANION GAP 11 mmol/L (5-15); BLOOD UREA NITROGEN 24 mg/dL (7-18); CARBON DIOXIDE 25 MMOL/L (21-32); CHLORIDE 107 MMOL/L (98-107); POTASSIUM 4.1 MMOL/L (3.5-5.1); SODIUM 143 MMOL/L (136-145)
[2019-01-20] MEDS: Lisinopril 20mg tab ORAL SCH ×2 (09:51→17:50)
[2019-01-20] MEDS: Aspirin EC 325mg tab ORAL SCH (09:51)
[2019-01-20] MEDS: Carvedilol 12.5mg tab ORAL SCH ×2 (09:51→20:46)
--- NOTE | 2019-01-20 10:53 | Diagnostic Imaging Report ---
Indication: Abdominal pain Comparison: None Single view of the abdomen obtained Findings: Bowel gas pattern is nonspecific. No mass, ectopic calcifications, or abnormal gas collections are identified. The bones are unremarkable. Impression: No acute findings
[2019-01-20 12:00] VITALS: BP 122/78
[2019-01-20] MEDS ORDERED: 1/2 NS 1000ml IV ONE (13:28)
[2019-01-20 16:03] VITALS: BP 156/92
--- NOTE | 2019-01-20 17:28 | NUR ---
HAND-OFF: Report given to González Neal.
--- NOTE | 2019-01-20 17:46 | NUR ---
NURSE NOTES: Received report from PRATEEK Cunningham(Tele) with stable condition. pt denies any pain nor in nay form of distress. Breathing regular and unlabored. no behavior issue at this time. Remains calm in bed. All belongings checked and kept at beside. Bed alarm on. call light within reach at all time. will continue to monitor
[2019-01-20] MEDS: Lactulose 20gm/30ml UDC ORAL SCH ×2 (17:49→20:45)
[2019-01-20] MEDS: Enoxaparin 40mg Inj SUBQ SCH (17:52)
[2019-01-20] MEDS ORDERED: Lactulose 20gm/30ml UDC ORAL SCH (18:00)
--- NOTE | 2019-01-20 19:21 | NUR ---
HAND-OFF: Report given to PRATEEK Paredes.
[2019-01-20 20:00] VITALS: BP 149/96
--- NOTE | 2019-01-20 20:00 | NUR ---
NURSE NOTES: RECIEVED PT.EYES CLOSED BUT ABLE TO FOLLOW SIMPLE COMMAND.V/S TAKEN AND RECORDED.TAKEN MEDICINES WITH NO DIFFICULTY.WILL CONTINUE W/ PLAN OF CARE.
[2019-01-20] MEDS: Tamsulosin 0.4mg cap ORAL SCH (20:47)
--- NOTE | 2019-01-20 23:00 | Progress Note ---
DATE: 01/17/2019 SUBJECTIVE: The patient was agitated and received a cocktail. Easily agitated and delusional. Still uncooperative with the examination and not able to be engaged. MENTAL STATUS EXAMINATION: The patient is alert, confused, and disoriented. Mood is agitated. Affect is flat. Thought process, there is a paucity of thought content. Thought content, no suicidal or homicidal ideations. ASSESSMENT: Schizophrenia and cognitive impairment. PLAN: We will continue current medication. Continue to follow and readjust the medications. Ivonne York M.D. DR: JANE JOB#: [id number] CC:
[2019-01-21] VITALS: BP 133/78
--- NOTE | 2019-01-21 01:00 | NUR ---
NURSE NOTES: OOB W/ ASSIST TO THE BR HAD BM TO EXTRA LARGE LOOSE STOOL ABLE TO DO SELF CARE STATE "I FEEL BETTER " ASSISTED BACK TO BED.RESTING COMFORTABLY.REMOVE CONDOM CATHETER.NEEDS ATTENDED.
[2019-01-21 04:00] VITALS: BP 137/80
--- NOTE | 2019-01-21 07:23 | NUR ---
HAND-OFF: Report given to ALONSO CHANDRA.
[2019-01-21 08:00] VITALS: BP 159/89
--- NOTE | 2019-01-21 08:16 | NUR ---
NURSE NOTES: pt in bed with no sob nor in any form of distress noted. Remains calm in bed with no behavior issue at this time. Able to use bathroom himself. denies any pain at this time. will continue to monitor
[2019-01-21] MEDS: Carvedilol 12.5mg tab ORAL SCH ×2 (08:34→09:04)
[2019-01-21] MEDS: Aspirin EC 325mg tab ORAL SCH (09:04)
[2019-01-21] MEDS: Lactulose 20gm/30ml UDC ORAL SCH ×4 (09:05→20:44)
[2019-01-21] MEDS: Lisinopril 20mg tab ORAL SCH ×2 (09:05→17:26)
--- NOTE | 2019-01-21 09:37 | Pulmonology Progress Note ---
Assessment/Plan Assessment/Plan IMPRESSION: 1. Previous CVA. 2. Lung nodule. 3. Hypertensive urgency. 4. Acute on Chronic Encephalopathy, either hypertensive or toxic metabolic. DISCUSSION: Social work evaluating for homelessness. Continue BP control Subjective Interval Events: None new; Abd Xray negative Constitutional: Reports: no symptoms HEENT: Repors: no symptoms Respiratory: Reports: no symptoms Gastrointestinal/Abdominal: Reports: no symptoms Allergies: Coded Allergies: UNABLE TO ASSESS (Unverified , 01/14/19) Patient refusing to answer questions Objective Last 24 Hour Vital Signs Date Time Temp Pulse Resp B/P (MAP) Pulse Ox O2 Delivery O2 Flow Rate FiO2 01/21/19 09:05 159/89 01/21/19 09:04 83 159/89 01/21/19 08:34 83 159/89 01/21/19 08:00 97.6 83 18 159/89 (112) 100 01/21/19 04:00 98.2 69 18 137/80 (99) 100 01/21/19 00:00 97.8 73 18 133/78 (96) 100 01/20/19 21:00 Room Air 01/20/19 20:46 70 149/96 01/20/19 20:00 98.1 70 18 149/96 (113) 97 01/20/19 17:50 156/92 01/20/19 16:03 98.3 64 18 156/92 (113) 98 01/20/19 14:34 74 01/20/19 12:00 98.1 60 18 122/78 (93) 98 01/20/19 09:51 69 165/95 01/20/19 09:51 165/95 01/20/19 09:51 165/95 Intake and Output 01/20/19 01/21/19 19:00 07:00 Intake Total 400 ml 120 ml Balance 400 ml 120 ml Intake Oral 400 ml 120 ml # Voids 1 1 General Appearance: no acute distress HEENT: normocephalic Respiratory/Chest: chest wall non-tender Cardiovascular: normal peripheral pulses Current Medications Medications (Trade) Dose Ordered Sig/Randall Route PRN Reason Start Time Stop Time Status Last Admin Dose Admin Aspirin (Ecotrin) 325 mg DAILY ORAL 01/21/19 09:00 02/14/19 08:59 01/21/19 09:04 Carvedilol (Coreg) 12.5 mg EVERY 12 HOURS ORAL 01/20/19 21:00 02/18/19 09:14 01/21/19 09:04 Clonidine HCl (Catapres Tab) 0.1 mg Q4H PRN ORAL SBP>150 mmHg 01/20/19 17:45 02/13/19 17:44 Dextrose (Dextrose 50%) 25 ml Q30M PRN IV Hypoglycemia 01/20/19 17:45 02/13/19 16:44 Dextrose (Dextrose 50%) 50 ml Q30M PRN IV Hypoglycemia 01/20/19 17:45 02/13/19 16:44 Enoxaparin Sodium (Lovenox) 40 mg Q24H SUBQ 01/20/19 18:00 02/13/19 17:44 Lactulose (Cephulac) 30 gm FOUR TIMES A DAY ORAL 01/20/19 18:00 02/19/19 17:59 01/21/19 09:05 Lisinopril (Prinivil) 20 mg BID ORAL 01/20/19 18:00 02/13/19 17:59 01/21/19 09:05 Risperidone (RisperDAL) 4 mg BEDTIME ORAL 01/21/19 21:00 02/20/19 20:59 Tamsulosin HCl (Flomax) 0.4 mg QHS ORAL 01/20/19 21:00 02/18/19 20:59 01/20/19 20:47 Jarod Marie MD Jan 21, 2019 09:37
[2019-01-21 12:00] VITALS: BP 144/77
[2019-01-21 16:00] VITALS: BP 139/75
--- NOTE | 2019-01-21 17:13 | NUR ---
Social Service Note Patient provided nursing his name Chalo Nova born in 1959. JENNIFER and [facility] completed a skip trace and missing person's report [phone] and discovered a person missing Roberto Nova date of 1960. Patient with missing person's report 10/18/2017 report filed at [facility] [phone]. JENNIFER spoke with Clerk Bowles who will provide welder experimental SW contact information and floor contact information. Jelena returned call and case was referred to MARC who will complete ID check before notifying family. JENNIFER notified primary nurse and charge nurse. Patient information placed in chart. Will follow up.
[2019-01-21] MEDS: Enoxaparin 40mg Inj SUBQ SCH (17:25)
--- NOTE | 2019-01-21 19:24 | NUR ---
HAND-OFF: Report given to PRATEEK Killian.
--- NOTE | 2019-01-21 20:02 | NUR ---
NURSE NOTES: Received patient awake,verbal,follows simple command,resting in bed,comfortable.
[2019-01-21 20:06] VITALS: BP 173/96
[2019-01-21] MEDS: Tamsulosin 0.4mg cap ORAL SCH (20:44)
[2019-01-22 00:08] VITALS: BP 167/96
[2019-01-22 04:03] VITALS: BP 152/83
--- NOTE | 2019-01-22 07:21 | NUR ---
HAND-OFF: Report given to Bret Cardenas RN.
--- NOTE | 2019-01-22 07:25 | NUR ---
NURSE NOTES: Received patient in bed, awake, verbally responsive.Patient is ambulatory with supervision. BRP. not in acute respiratory/cardiac distress. Denies any pain or discomfort. Bed is in lowest position and locked. Call light within reach. Close monitoring. Will continue plan of care.
--- NOTE | 2019-01-22 07:35 | Pulmonology Progress Note ---
Assessment/Plan Assessment/Plan IMPRESSION: 1. Previous CVA. 2. Lung nodule. 3. Hypertensive urgency. 4. Acute on Chronic Encephalopathy, either hypertensive or toxic metabolic. DISCUSSION: Social work evaluating for homelessness. Continue BP control psych following Subjective Interval Events: none new Constitutional: Reports: no symptoms HEENT: Repors: no symptoms Respiratory: Reports: no symptoms Allergies: Coded Allergies: UNABLE TO ASSESS (Unverified , 01/14/19) Patient refusing to answer questions Objective Last 24 Hour Vital Signs Date Time Temp Pulse Resp B/P (MAP) Pulse Ox O2 Delivery O2 Flow Rate FiO2 01/22/19 04:03 97.9 68 20 152/83 (106) 100 01/22/19 00:47 167/96 01/22/19 00:08 98.4 96 20 167/96 (119) 99 01/21/19 20:44 173/96 01/21/19 20:13 Room Air 01/21/19 20:06 98.0 84 20 173/96 (121) 97 01/21/19 17:26 139/75 01/21/19 16:00 98.2 75 18 139/75 (96) 99 01/21/19 12:00 98.0 79 18 144/77 (99) 100 01/21/19 09:05 159/89 01/21/19 09:04 83 159/89 01/21/19 09:00 Room Air 01/21/19 08:34 83 159/89 01/21/19 08:00 97.6 83 18 159/89 (112) 100 Intake and Output 01/21/19 01/22/19 19:00 07:00 Intake Total 600 ml Output Total 1100 ml Balance 600 ml -1100 ml Intake Oral 600 ml Output Urine Total 1100 ml # Bowel Movements 4 General Appearance: no acute distress HEENT: normocephalic Respiratory/Chest: chest wall non-tender, lungs clear Cardiovascular: normal peripheral pulses, normal rate Current Medications Medications (Trade) Dose Ordered Sig/Randall Route PRN Reason Start Time Stop Time Status Last Admin Dose Admin Aspirin (Ecotrin) 325 mg DAILY ORAL 01/21/19 09:00 02/14/19 08:59 01/21/19 09:04 Carvedilol (Coreg) 12.5 mg EVERY 12 HOURS ORAL 01/20/19 21:00 02/18/19 09:14 01/21/19 09:04 Clonidine HCl (Catapres Tab) 0.1 mg Q4H PRN ORAL SBP>150 mmHg 01/20/19 17:45 02/13/19 17:44 01/22/19 00:47 Dextrose (Dextrose 50%) 25 ml Q30M PRN IV Hypoglycemia 01/20/19 17:45 02/13/19 16:44 Dextrose (Dextrose 50%) 50 ml Q30M PRN IV Hypoglycemia 01/20/19 17:45 02/13/19 16:44 Enoxaparin Sodium (Lovenox) 40 mg Q24H SUBQ 01/20/19 18:00 02/13/19 17:44 Lactulose (Cephulac) 30 gm FOUR TIMES A DAY ORAL 01/20/19 18:00 02/19/19 17:59 01/21/19 12:50 Lisinopril (Prinivil) 20 mg BID ORAL 01/20/19 18:00 02/13/19 17:59 01/21/19 17:26 Risperidone (RisperDAL) 4 mg BEDTIME ORAL 01/21/19 21:00 02/20/19 20:59 01/21/19 20:44 Tamsulosin HCl (Flomax) 0.4 mg QHS ORAL 01/20/19 21:00 02/18/19 20:59 01/21/19 20:44 Jarod Marie MD Jan 22, 2019 07:35
[2019-01-22 08:00] VITALS: BP 131/87
[2019-01-22] MEDS: Aspirin EC 325mg tab ORAL SCH (08:43)
[2019-01-22] MEDS: Carvedilol 12.5mg tab ORAL SCH ×2 (08:43→21:41)
[2019-01-22] MEDS: Lisinopril 20mg tab ORAL SCH ×2 (08:43→17:23)
[2019-01-22] MEDS: Lactulose 20gm/30ml UDC ORAL SCH ×2 (08:46→13:00)
--- NOTE | 2019-01-22 10:20 | NUR ---
Social Service Note SW followed up with Marshal MATHIS [phone] and [employer] fingerprinting was a match to Roberto Mariano missing person since 10/17/2017. Marshal MATHIS will contact family and provide SW contact information. Will continue to follow up.
--- NOTE | 2019-01-22 11:27 | NUR ---
RD ASSESSMENT & RECOMMENDATIONS SEE CARE ACTIVITY FOR COMPLETE ASSESSMENT DAILY ESTIMATED NEEDS: Needs based on Cardiac, 59kg 25-30 kcals/kg 5782-0555 total kcals 1-1.3 g protein/kg 59-77 g total protein 25-30 mL/kg 3210-4754 total fluid mLs NUTRITION DIAGNOSIS: Decreased sodium intake needs R/T cardiac hx as evidenced by h/o CVA, admitted w/ hypertensive emergency w/ BP of 243/161-> now improved. CURRENT DIET:REGULAR PO DIET RECOMMENDATIONS: LOW NA/ texture as tolerated or per [facility]ER ADDITIONAL RECOMMENDATIONS: * Standing wt for accurate CBW * Consider [facility] eval for appropriate texture: h/o CVA
[2019-01-22 12:00] VITALS: BP 157/94
[2019-01-22 16:00] VITALS: BP 157/107
[2019-01-22] MEDS: Enoxaparin 40mg Inj SUBQ SCH (17:10)
--- NOTE | 2019-01-22 17:32 | NUR ---
Social Service Note Patient doesn't have family in the [place]. Patient was residing with a friend when he went missing. Patient's friend Chua Nakul [phone]. Friend will visit patient tomorrow. Friend also stated if patient is agreeable he will welcome him into his home. Will continue to monitor and follow up.
--- NOTE | 2019-01-22 17:38 | NUR ---
NURSE NOTES: clarified lactulose order from Dr. Quezada. Per Dr. Quezada it was given due to constipation. It is ok to d/c med if patient moves his bowel. Patient moved his bowel movement today. discontinued order.
--- NOTE | 2019-01-22 17:58 | NUR ---
CASE MANAGEMENT:REVIEW 01/22/19 SI: ENCEPHALOPATHY HYPERTENSIVE URGENCY. LUNG NODULE 97.2 72 17 157/107 98% ON RA IS: RISPERDAL PO QHS ASA PO QD COREG PO Q12 FLOMAX PO QHS LOVENOX SQ Q24 LISINOPRIL PO BID CLONIDINE PO Q4HRS PRN : TELEMETRY STATUS DCP: ??? PLAN: DC PLAN UNCONFIRMED AT THIS TIME
--- NOTE | 2019-01-22 19:35 | NUR ---
NURSE NOTES: Received report from Delilah Durand RN. Patient is awake, alert x2 and sitting in his chair at bedside. No signs of distress or SOB. IV is intact. Call light is within easy reach. Will continue to monitor the patient.
--- NOTE | 2019-01-22 19:55 | NUR ---
HAND-OFF: Report given to Christy.
[2019-01-22 20:00] VITALS: BP 151/83
[2019-01-22] MEDS: Tamsulosin 0.4mg cap ORAL SCH (21:30)
[2019-01-23] VITALS (8 sets, daily range): BP systolic 142–188; BP diastolic 83–107
--- NOTE | 2019-01-23 07:41 | NUR ---
HAND-OFF: Report given to PRATEEK Ya.
--- NOTE | 2019-01-23 07:42 | NUR ---
NURSE NOTES: Patient awake, alert x4, eating breakfast sitting at the bed; on room air, no sign of distress, no sign of shortness of breath; no sign of chest pain; IV RAC 22G flushes well; bed at lowest position, side rails up x2, breaks engaged, bed alarm on; call light within reach; will keep monitoring.
--- NOTE | 2019-01-23 08:36 | Pulmonology Progress Note ---
Assessment/Plan Assessment/Plan IMPRESSION: 1. Previous CVA. 2. Lung nodule. 3. Hypertensive urgency. 4. Acute on Chronic Encephalopathy, either hypertensive or toxic metabolic. DISCUSSION: Social work evaluating for homelessness. Continue BP control psych following Subjective Interval Events: None new Constitutional: Reports: no symptoms HEENT: Repors: no symptoms Respiratory: Reports: no symptoms Cardiovascular: Reports: no symptoms Allergies: Coded Allergies: UNABLE TO ASSESS (Unverified , 01/14/19) Patient refusing to answer questions Objective Last 24 Hour Vital Signs Date Time Temp Pulse Resp B/P (MAP) Pulse Ox O2 Delivery O2 Flow Rate FiO2 01/23/19 04:00 97.7 72 20 142/83 (102) 97 01/23/19 00:00 97.7 65 20 147/86 (106) 97 01/22/19 21:41 77 151/83 01/22/19 21:00 Room Air 01/22/19 20:00 98.0 77 20 151/83 (105) 97 01/22/19 17:23 148/91 01/22/19 16:00 97.2 72 17 157/107 (124) 98 01/22/19 13:48 157/94 01/22/19 12:00 98.1 74 17 157/94 (115) 97 01/22/19 09:00 Room Air 01/22/19 08:43 131/87 01/22/19 08:43 89 131/87 Intake and Output 01/22/19 01/23/19 19:00 07:00 Intake Total 700 ml 240 ml Balance 700 ml 240 ml Intake Oral 700 ml 240 ml # Voids 4 # Bowel Movements 2 1 General Appearance: no acute distress HEENT: normocephalic Respiratory/Chest: chest wall non-tender, lungs clear Cardiovascular: normal peripheral pulses Abdomen: normal bowel sounds Current Medications Medications (Trade) Dose Ordered Sig/Randall Route PRN Reason Start Time Stop Time Status Last Admin Dose Admin Aspirin (Ecotrin) 325 mg DAILY ORAL 01/21/19 09:00 02/14/19 08:59 01/22/19 08:43 Carvedilol (Coreg) 12.5 mg EVERY 12 HOURS ORAL 01/20/19 21:00 02/18/19 09:14 01/22/19 21:41 Clonidine HCl (Catapres Tab) 0.1 mg Q4H PRN ORAL SBP>150 mmHg 01/20/19 17:45 02/13/19 17:44 01/22/19 13:48 Dextrose (Dextrose 50%) 25 ml Q30M PRN IV Hypoglycemia 01/20/19 17:45 02/13/19 16:44 Dextrose (Dextrose 50%) 50 ml Q30M PRN IV Hypoglycemia 01/20/19 17:45 02/13/19 16:44 Enoxaparin Sodium (Lovenox) 40 mg Q24H SUBQ 01/20/19 18:00 02/13/19 17:44 Lisinopril (Prinivil) 20 mg BID ORAL 01/20/19 18:00 02/13/19 17:59 01/22/19 17:23 Risperidone (RisperDAL) 4 mg BEDTIME ORAL 01/21/19 21:00 02/20/19 20:59 01/22/19 21:41 Tamsulosin HCl (Flomax) 0.4 mg QHS ORAL 01/20/19 21:00 02/18/19 20:59 01/22/19 21:30 Jarod Marie MD Jan 23, 2019 08:36
[2019-01-23] MEDS: Carvedilol 12.5mg tab ORAL SCH ×2 (08:41→20:56)
[2019-01-23] MEDS: Aspirin EC 325mg tab ORAL SCH (08:41)
[2019-01-23] MEDS: Lisinopril 20mg tab ORAL SCH (08:42)
--- NOTE | 2019-01-23 10:54 | NUR ---
CASE MANAGEMENT:REVIEW 01/23/19 SI: AC/CHR ENCEPHALOPATHY HTN URGENCY. LUNG NODULE. PREVIOUS CVA 98.1 74 18 175/93 97% ON RA IS: RISPERDAL PO QHS ASA PO QD COREG PO Q12 FLOMAX PO QHS LOVENOX SQ Q24 LISINOPRIL PO BID : MED/SURG STATUS DCP: ?
--- NOTE | 2019-01-23 15:02 | NUR ---
NURSE NOTES: Patient's blood pressure was 170/100 and Clonidine 0.1 mg given; re-assed BP and 188/107; MD Marie notified and new order Lisinopril 30mg BID received. No order received regarding transfer the patient.
--- NOTE | 2019-01-23 16:01 | NUR ---
Social Service Note JENNIFER met with patient's friend Harshil Mota [phone]. Friend met with patient and brought him an outfit to wear. Friend states patient appears "off" and wasn't answering questions appropriately occasionally. Friend states in this current condition he could not commit to taking patient to his home as he wouldn't want to be responsible for his care. Friend is also concerned that if patient didn't have insurance how would he receive follow up medical care and medication. Friend will speak to [facility]. Patient's sister Marisol who lives in [facility] contact # country code 4 #[phone]. Will continue to monitor and follow up.
[2019-01-23] MEDS: Enoxaparin 40mg Inj SUBQ SCH ×2 (18:00→18:42)
--- NOTE | 2019-01-23 18:18 | NUR ---
NURSE NOTES: Patient's platelet 131, [place] hold. Charge Nurse Malathi mello.
--- NOTE | 2019-01-23 18:22 | NUR ---
NURSE NOTES: Called MD Marie to get an order for Levenox parameter. I left my name, the reason I called and call back number. Waiting for call.
[2019-01-23] MEDS: Lisinopril 10mg tab ORAL SCH (18:44)
--- NOTE | 2019-01-23 19:24 | NUR ---
NURSE NOTES: Received report from PRATEEK Ya. Patient is laying down in bed, awake and alert x2. Right AC IV is still intact and patent. Patient is room air with no signs of distress or SOB. No complaints of pain at this time. Bed locked and in lowest position. Will monitor blood pressure and follow up with MD as needed.
--- NOTE | 2019-01-23 19:35 | NUR ---
NURSE NOTES: HAND-OFF: Report given to PRATEEK Stanton.
[2019-01-23] MEDS: Tamsulosin 0.4mg cap ORAL SCH (20:55)
[2019-01-24] VITALS (7 sets, daily range): BP systolic 144–191; BP diastolic 69–104
--- NOTE | 2019-01-24 07:24 | NUR ---
NURSE NOTES: Patient asleep, on room air, no sign of distress and shortness of breath; no sign of chest pain; IV RAC flushes well; side rails up x2, breaks engaged, call light within reach; will keep monitoring.
--- NOTE | 2019-01-24 07:32 | NUR ---
HAND-OFF: Report given to PRATEEK Ya.
[2019-01-24] MEDS: Carvedilol 12.5mg tab ORAL SCH ×2 (08:29→20:26)
[2019-01-24] MEDS: Lisinopril 10mg tab ORAL SCH ×2 (08:30→17:07)
[2019-01-24] MEDS: Aspirin EC 325mg tab ORAL SCH (08:30)
--- NOTE | 2019-01-24 10:34 | Pulmonology Progress Note ---
Assessment/Plan Assessment/Plan IMPRESSION: 1. Previous CVA. 2. Lung nodule. 3. Hypertensive urgency. 4. Acute on Chronic Encephalopathy 5. 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 Continue BP control psych following Subjective Interval Events: None new Constitutional: Reports: no symptoms HEENT: Repors: no symptoms Respiratory: Reports: no symptoms Cardiovascular: Reports: no symptoms Gastrointestinal/Abdominal: Reports: no symptoms Genitourinary: Reports: no symptoms Allergies: Coded Allergies: UNABLE TO ASSESS (Unverified , 01/14/19) Patient refusing to answer questions Objective Last 24 Hour Vital Signs Date Time Temp Pulse Resp B/P (MAP) Pulse Ox O2 Delivery O2 Flow Rate FiO2 01/24/19 09:00 Room Air 01/24/19 08:30 152/94 01/24/19 08:29 75 152/94 01/24/19 08:00 97.7 75 18 152/94 (113) 99 01/24/19 04:00 98.1 59 18 149/88 (108) 99 01/24/19 00:00 97.4 65 18 144/69 (94) 98 01/23/19 21:00 Room Air 01/23/19 20:56 65 152/83 01/23/19 20:00 97.6 65 18 152/83 (106) 99 01/23/19 18:44 170/100 01/23/19 18:00 97.8 71 16 177/98 (124) 99 01/23/19 16:45 170/102 01/23/19 16:00 97.8 69 16 170/102 (124) 99 01/23/19 13:30 98.5 98 17 188/107 (134) 98 01/23/19 12:00 98.5 71 17 170/100 (123) 98 01/23/19 11:41 170/100 Intake and Output 01/23/19 01/24/19 19:00 07:00 # Voids 3 # Bowel Movements 1 1 General Appearance: no acute distress HEENT: normocephalic Respiratory/Chest: chest wall non-tender, lungs clear Cardiovascular: normal peripheral pulses, normal rate Abdomen: normal bowel sounds Current Medications Medications (Trade) Dose Ordered Sig/Randall Route PRN Reason Start Time Stop Time Status Last Admin Dose Admin Aspirin (Ecotrin) 325 mg DAILY ORAL 01/21/19 09:00 02/14/19 08:59 7/25/19 08:30 Carvedilol (Coreg) 12.5 mg EVERY 12 HOURS ORAL 01/20/19 21:00 02/18/19 09:14 01/24/19 08:29 Clonidine HCl (Catapres Tab) 0.1 mg Q4H PRN ORAL SBP>150 mmHg 01/20/19 17:45 02/13/19 17:44 01/23/19 16:45 Dextrose (Dextrose 50%) 25 ml Q30M PRN IV Hypoglycemia 01/20/19 17:45 02/13/19 16:44 Dextrose (Dextrose 50%) 50 ml Q30M PRN IV Hypoglycemia 01/20/19 17:45 02/13/19 16:44 Enoxaparin Sodium (Lovenox) 40 mg Q24H SUBQ 01/20/19 18:00 02/13/19 17:44 01/23/19 18:42 Lisinopril (Zestril) 30 mg BID ORAL 01/23/19 18:00 02/22/19 17:59 01/24/19 08:30 Risperidone (RisperDAL) 6 mg BEDTIME ORAL 01/23/19 21:00 02/22/19 20:59 01/23/19 20:55 Tamsulosin HCl (Flomax) 0.4 mg QHS ORAL 01/20/19 21:00 02/18/19 20:59 01/23/19 20:55 Jarod Marie MD Jan 24, 2019 10:34
[2019-01-24] MEDS ORDERED: RISPERDAL2 MG ORAL (10:44)
--- NOTE | 2019-01-24 10:48 | NUR ---
NURSE NOTES: Dr York left a prescription of medications for this patient. Prescription kept on patient's file.
--- NOTE | 2019-01-24 10:49 | NUR ---
NURSE NOTES: Dr Marie put a discharge order to Home for this patient. According to Maximus's note from 01/23/19, patient's friend isn't willing to take patient to his home. I communicated this matter to MD Marei. order that I need to notify JENNIFER Stroud that there is a discharge order. I called and left a message to JENNIFER Stroud. Waiting SW call back.
--- NOTE | 2019-01-24 11:05 | NUR ---
NURSE NOTES: JENNIFER Velazquez called back. JENNIFER said patient is not safe to discharge him in this condition.
--- NOTE | 2019-01-24 11:34 | NUR ---
Social Service Note Patient is alert x2. Last psychiatric assessment 01/20, indicating easily agitated and delusional, still uncooperative with the examination and not able to be engaged. Patient will require reassessment. Prescription for psychiatric medication in chart. Patient will require prescription for medications. SW addressed with primary nurse who will contact Dr. Brock and Dr. York. Patient currently not appropriate for homeless placement. Will continue to monitor.
--- NOTE | 2019-01-24 11:48 | NUR ---
NURSE NOTES: JENNIFER Velazquez communicated me to ask MD Marie to give patient a prescription for Blood pressure. I communicated MD Marie regarding the matter. MD Chávez said will write the prescription when patient is going home.
--- NOTE | 2019-01-24 11:51 | NUR ---
NURSE NOTES: JENNIFER Velazquez asked me to communicated MD York regarding the updated evaluation of patient. I communicated MD Taylor, said we don't need to wait her note to DC patient, MD York will communicated MD Marie regarding the matter.
--- NOTE | 2019-01-24 11:54 | NUR ---
NURSE NOTES: JENNIFER Velazquez asked me to fax her the prescription MD York left, prescription faxed to JENNIFER.
--- NOTE | 2019-01-24 14:46 | NUR ---
NURSE NOTES: Patient's blood pressure was 178/98 P 72; Clonidine 0.1 mg given, BP re-checked after Clonidine given BP 160/97 P 75; Will keep monitoring.
--- NOTE | 2019-01-24 15:22 | NUR ---
CASE MANAGEMENT:REVIEW 01/24/19 SI: AC/CHR ENCEPHALOPATHY HTN URGENCY. LUNG NODULE. PREVIOUS CVA 98.5 91 19 147/70 95% ON RA IS: IV VANCOMYCIN Q8 RISPERDAL PO QHS ASA PO QD COREG PO Q12 FLOMAX PO QHS LOVENOX SQ Q24 LISINOPRIL PO BID HYDRALAZINE PO Q6HRS : MED/SURG STATUS DCP: ?
[2019-01-24] MEDS: Enoxaparin 40mg Inj SUBQ SCH (17:08)
--- NOTE | 2019-01-24 19:46 | NUR ---
HAND-OFF: Report given to PRATEEK Block.
[2019-01-24] MEDS: Tamsulosin 0.4mg cap ORAL SCH (20:31)
--- NOTE | 2019-01-24 22:15 | Progress Note ---
DATE: 01/24/2019 SUBJECTIVE: The patient was in bed. Follows directions. Able to answer the questions. The patient is less disorganized. Less agitated. No suicidal or homicidal ideation. The patient denied any suicidal or homicidal ideations. MENTAL STATUS EXAMINATION: The patient is alert, oriented times self and he knows he is in the hospital. He still has poor insight into the situation he is in. Mood is neutral. Affect is flat. Thought process, congruent with mood and appropriate. Thought process is concrete. Thought content, no suicidal or homicidal ideations. Insight and judgment is poor. Cognition is impaired. ASSESSMENT: Schizophrenia. The patient is not an imminent danger to self or others. PLAN: 1. The patient will be discharged to the family. 2. Prescription was written for risperidone. Discussed the case with Dr. Marie today morning in person. Ivonne York M.D. DR: WENDY JOB#: [id number] CC:
--- NOTE | 2019-01-24 23:53 | NUR ---
NURSE NOTES : AWAKE,ALERT,DUE MEDICATIONS GIVEN,B/P STILL ELEVATED,PRN. MED. GIVEN.REMAINED ASLEEP.CONTINUED TO MONITOR
[2019-01-25] VITALS: BP 153/92
[2019-01-25 04:00] VITALS: BP 151/91
[2019-01-25] MEDS: HydrALAZINE 25mg tab ORAL SCH ×2 (06:08→17:19)
--- NOTE | 2019-01-25 07:53 | NUR ---
NURSE NOTES: pt in bed with no sob nor in any form of distress noted. breathing regular and unlabored. denies pain at this time. discharge on hold for now due to no one is available to picket [employer] the pt. Bed in lowest position. call light within reach at all time. will continue to monitor
[2019-01-25 08:00] VITALS: BP 157/95
--- NOTE | 2019-01-25 08:47 | Pulmonology Progress Note ---
Assessment/Plan Assessment/Plan IMPRESSION: 1. Previous CVA. 2. Lung nodule. 3. Hypertensive urgency. 4. Acute on Chronic Encephalopathy 5. 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 psych following Dc home with family Subjective Interval Events: None new Constitutional: Reports: no symptoms HEENT: Repors: no symptoms Respiratory: Reports: no symptoms Cardiovascular: Reports: no symptoms Gastrointestinal/Abdominal: Reports: no symptoms Genitourinary: Reports: no symptoms Allergies: Coded Allergies: UNABLE TO ASSESS (Unverified , 01/14/19) Patient refusing to answer questions Objective Last 24 Hour Vital Signs Date Time Temp Pulse Resp B/P (MAP) Pulse Ox O2 Delivery O2 Flow Rate FiO2 01/25/19 08:00 97.3 66 18 157/95 (115) 99 01/25/19 06:08 151/91 01/25/19 04:00 97.7 19 151/91 (111) 99 01/25/19 00:00 97.7 19 153/92 (112) 63 01/24/19 21:00 Room Air 01/24/19 20:32 191/104 01/24/19 20:26 68 191/104 01/24/19 20:00 98.5 68 18 191/104 (133) 98 01/24/19 17:07 158/99 01/24/19 16:00 97.8 67 19 158/99 (118) 98 01/24/19 14:40 97.3 75 19 160/97 (118) 98 01/24/19 12:50 178/98 01/24/19 12:00 98.0 72 19 178/98 (124) 98 01/24/19 09:00 Room Air Intake and Output 01/24/19 01/25/19 18:59 06:59 Intake Total 480 ml 200 ml Balance 480 ml 200 ml Intake Oral 480 ml 200 ml # Bowel Movements 1 1 General Appearance: no acute distress HEENT: normocephalic Respiratory/Chest: chest wall non-tender, lungs clear Cardiovascular: normal peripheral pulses, normal rate Abdomen: normal bowel sounds, soft, non tender Extremities: no cyanosis Current Medications Medications (Trade) Dose Ordered Sig/Randall Route PRN Reason Start Time Stop Time Status Last Admin Dose Admin Aspirin (Ecotrin) 325 mg DAILY ORAL 01/21/19 09:00 02/14/19 08:59 01/24/19 08:30 Carvedilol (Coreg) 12.5 mg EVERY 12 HOURS ORAL 01/20/19 21:00 02/18/19 09:14 01/24/19 20:26 Clonidine HCl (Catapres Tab) 0.1 mg Q4H PRN ORAL SBP>150 mmHg 01/20/19 17:45 02/13/19 17:44 01/24/19 20:32 Dextrose (Dextrose 50%) 25 ml Q30M PRN IV Hypoglycemia 01/20/19 17:45 02/13/19 16:44 Dextrose (Dextrose 50%) 50 ml Q30M PRN IV Hypoglycemia 01/20/19 17:45 02/13/19 16:44 Enoxaparin Sodium (Lovenox) 40 mg Q24H SUBQ 01/20/19 18:00 02/13/19 17:44 01/24/19 17:08 Hydralazine HCl (Apresoline) 25 mg BIAC ORAL 01/25/19 06:30 02/24/19 06:29 01/25/19 06:08 Lisinopril (Zestril) 30 mg BID ORAL 01/23/19 18:00 02/22/19 17:59 01/24/19 17:07 Risperidone (RisperDAL) 6 mg BEDTIME ORAL 01/23/19 21:00 02/22/19 20:59 01/24/19 20:31 Tamsulosin HCl (Flomax) 0.4 mg QHS ORAL 01/20/19 21:00 02/18/19 20:59 01/24/19 20:31 Jarod Marie MD Jan 25, 2019 08:47
[2019-01-25] MEDS ORDERED: HYDRALAZINE HCL25 M1 ORAL (08:49)
[2019-01-25] MEDS ORDERED: ZESTRIL10 M1 ORAL (08:49)
[2019-01-25] MEDS ORDERED: FLOMAX0.4 MG ORAL (08:49)
[2019-01-25] MEDS ORDERED: COREG12.5 MG ORAL (08:49)
[2019-01-25] MEDS: Aspirin EC 325mg tab ORAL SCH (09:20)
[2019-01-25] MEDS: Carvedilol 12.5mg tab ORAL SCH ×2 (09:20→20:25)
[2019-01-25] MEDS: Lisinopril 10mg tab ORAL SCH ×2 (09:20→17:20)
--- NOTE | 2019-01-25 11:18 | NUR ---
Social Work Nursing reported friend, Harshil explains he cannot take patient to his home upon discharge. This SW spoke with friend, Harshil Mota ([phone]) who explained he will not be able to care for patient after discharge in his home. Friend states he plans to leave town, will be here to visit patient when he returns. Patient to apply for [facility] for SNF placement (unless friend can take patient to provide 24 hour supervision (patient is confused).
[2019-01-25 12:00] VITALS: BP 160/99
[2019-01-25 16:00] VITALS: BP 138/76
--- NOTE | 2019-01-25 16:33 | NUR ---
CASE MANAGEMENT:REVIEW 01/25/19 SI: AC/CHR ENCEPHALOPATHY HTN URGENCY. LUNG NODULE. PREVIOUS CVA 97.8 75 18 138/76 100% ON RA IS: IV VANCOMYCIN Q8 RISPERDAL PO QHS ASA PO QD COREG PO Q12 FLOMAX PO QHS LOVENOX SQ Q24 LISINOPRIL PO BID HYDRALAZINE PO Q6HRS : MED/SURG STATUS DCP: ?
[2019-01-25] MEDS: Enoxaparin 40mg Inj SUBQ SCH (17:20)
--- NOTE | 2019-01-25 19:09 | NUR ---
HAND-OFF: Report given to PRATEEK Crocker.
--- NOTE | 2019-01-25 19:51 | NUR ---
NURSE NOTES: Received patient in bed, awake, alert, oriented x 3/4, ambulatory with a walker, no acute distress noted, VSS, afebrile. Call light is within reach, bed is in low position, locked and alarm is on, will continue to monitor for safety and comfort.
[2019-01-25 20:00] VITALS: BP 156/82
[2019-01-25] MEDS: Tamsulosin 0.4mg cap ORAL SCH (20:25)
[2019-01-26] VITALS: BP 133/70
--- NOTE | 2019-01-26 00:45 | Progress Note ---
DATE: 01/25/2019 SUBJECTIVE: The patient is presenting with paranoid ideation. Minimally verbal. More alert. He is able to answer the questions more appropriately. MENTAL STATUS EXAM: The patient is alert and oriented times self, place, and situation he is in. Mood is anxious. Affect is constricted. Congruent mood. Thought process is concrete. Thought content, no suicidal or homicidal ideation. ASSESSMENT: Schizophrenia. PLAN: We will continue current medications. The patient may be discharged ____. Ivonne York M.D. DR: NISHANT JOB#: [id number] CC:
[2019-01-26 04:00] VITALS: BP 156/93
[2019-01-26] MEDS: HydrALAZINE 25mg tab ORAL SCH ×2 (06:12→17:06)
--- NOTE | 2019-01-26 06:44 | NUR ---
HAND-OFF: Report given to Yanni WHITTINGTON.
--- NOTE | 2019-01-26 07:45 | NUR ---
NURSE NOTES: Received patient in bed, awake, alert, orientedx4. able to make things known, ambulatory with a walker, no acute distress noted. Call light is within reach, bed is in low position, locked and alarm is on, will continue to monitor for safety and comfort.
[2019-01-26 08:00] VITALS: BP 148/87
[2019-01-26] MEDS: Aspirin EC 325mg tab ORAL SCH (08:30)
[2019-01-26] MEDS: Lisinopril 10mg tab ORAL SCH ×2 (08:30→17:04)
[2019-01-26] MEDS: Carvedilol 12.5mg tab ORAL SCH ×2 (08:30→20:45)
--- NOTE | 2019-01-26 11:00 | NUR ---
NURSE NOTES: seen by PT and able to walk to the bathroom with minimal assist. call light is within reach. No acute resp distress noted. appetite is good and no c/o pain/discomfort. will cont to monitor.
[2019-01-26 11:44] VITALS: BP 156/94
--- NOTE | 2019-01-26 14:40 | NUR ---
CASE MANAGEMENT:REVIEW 01/26/19 SI: AC/CHR ENCEPHALOPATHY HTN URGENCY. LUNG NODULE. PREVIOUS CVA T 98.1 HR 68 RR 18 B/P 156/94 SATS 98% ON RA NO LABS TODAY IS: IV VANCOMYCIN Q8H RISPERDAL PO QHS ASA PO QD COREG PO Q12H FLOMAX PO QHS LOVENOX SQ Q24H LISINOPRIL PO BID HYDRALAZINE PO Q6HRS : MED/SURG STATUS
[2019-01-26 16:00] VITALS: BP 143/83
[2019-01-26] MEDS: Enoxaparin 40mg Inj SUBQ SCH (17:05)
--- NOTE | 2019-01-26 18:55 | NUR ---
HAND-OFF: Report given to Lizzette.
--- NOTE | 2019-01-26 19:13 | NUR ---
NURSE NOTES: Received patient in bed, awake, alert, oriented x 3/4, able to make his needs known, ambulatory with help of a walker, steady gate. Patient is able to make his needs known. Call light is within reach, bed is in low position, locked and alarm is on.
[2019-01-26 20:00] VITALS: BP 149/87
[2019-01-26] MEDS: Tamsulosin 0.4mg cap ORAL SCH (20:45)
[2019-01-27] VITALS (7 sets, daily range): BP systolic 149–184; BP diastolic 77–97
[2019-01-27] MEDS: HydrALAZINE 25mg tab ORAL SCH ×2 (06:00→16:01)
--- NOTE | 2019-01-27 06:46 | NUR ---
HAND-OFF: Report given to Otis CHANDRA.
--- NOTE | 2019-01-27 07:21 | NUR ---
NURSE NOTES: PT AXOX3, CALM, EATING BREAKFAST ON CHAIR AT BEDSIDE. PT DENIES PAIN AT THIS TIME. DENIES DIZZINESS WHEN AMBULATING. IN NO APPARENT DISTRESS AT THIS TIME. CALL LIGHT WITHIN REACH. WILL CONTINUE TO MONITOR.
[2019-01-27] MEDS: Aspirin EC 325mg tab ORAL SCH (08:12)
[2019-01-27] MEDS: Lisinopril 10mg tab ORAL SCH ×2 (08:12→17:05)
[2019-01-27] MEDS: Carvedilol 12.5mg tab ORAL SCH ×2 (08:12→20:09)
--- NOTE | 2019-01-27 10:57 | Pulmonology Progress Note ---
Assessment/Plan Assessment/Plan IMPRESSION: 1. Previous CVA. 2. Lung nodule. 3. Hypertensive urgency. 4. Acute on Chronic Encephalopathy 5. 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 Objective Last 24 Hour Vital Signs Date Time Temp Pulse Resp B/P (MAP) Pulse Ox O2 Delivery O2 Flow Rate FiO2 01/27/19 09:00 Room Air 01/27/19 08:12 149/86 01/27/19 08:12 74 149/86 01/27/19 08:00 95.6 74 16 149/86 (107) 96 01/27/19 06:00 150/78 01/27/19 04:00 97.8 87 18 150/78 (102) 01/27/19 00:16 166/87 01/27/19 00:00 98.7 78 20 166/77 (106) 01/26/19 21:00 Room Air 01/26/19 20:45 78 149/87 01/26/19 20:00 98.5 75 20 149/87 (107) 01/26/19 17:06 143/83 01/26/19 17:04 143/83 01/26/19 16:00 98.0 70 18 143/83 (103) 97 01/26/19 11:44 98.1 68 18 156/94 (114) 98 Intake and Output 01/26/19 01/27/19 18:59 06:59 Intake Total 480 ml Balance 480 ml Intake Oral 480 ml # Voids 4 3 # Bowel Movements 1 1 General Appearance: no acute distress HEENT: normocephalic Respiratory/Chest: chest wall non-tender, lungs clear Cardiovascular: normal peripheral pulses, normal rate Current Medications Medications (Trade) Dose Ordered Sig/Randall Route PRN Reason Start Time Stop Time Status Last Admin Dose Admin Aspirin (Ecotrin) 325 mg DAILY ORAL 01/21/19 09:00 02/14/19 08:59 01/27/19 08:12 Carvedilol (Coreg) 12.5 mg EVERY 12 HOURS ORAL 01/20/19 21:00 02/18/19 09:14 01/27/19 08:12 Clonidine HCl (Catapres Tab) 0.1 mg Q4H PRN ORAL SBP>150 mmHg 01/20/19 17:45 02/13/19 17:44 01/27/19 00:16 Dextrose (Dextrose 50%) 25 ml Q30M PRN IV Hypoglycemia 01/20/19 17:45 02/13/19 16:44 Dextrose (Dextrose 50%) 50 ml Q30M PRN IV Hypoglycemia 01/20/19 17:45 02/13/19 16:44 Enoxaparin Sodium (Lovenox) 40 mg Q24H SUBQ 01/20/19 18:00 02/13/19 17:44 01/26/19 17:05 Hydralazine HCl (Apresoline) 25 mg BIAC ORAL 01/25/19 06:30 02/24/19 06:29 01/27/19 06:00 Lisinopril (Zestril) 30 mg BID ORAL 01/23/19 18:00 02/22/19 17:59 01/27/19 08:12 Risperidone (RisperDAL) 6 mg BEDTIME ORAL 01/23/19 21:00 02/22/19 20:59 01/26/19 20:45 Tamsulosin HCl (Flomax) 0.4 mg QHS ORAL 01/20/19 21:00 02/18/19 20:59 01/26/19 20:45 Jarod Marie MD Jan 27, 2019 10:57
--- NOTE | 2019-01-27 16:14 | NUR ---
NURSE NOTES: PT WITH ELEVATED BP 184/97, PULSE 59. RN ADMINISTERED SCHEDULED HYDRALAZINE ORDERED. PT ALERT AND ANSWERS RN'S QUESTIONS APPROPRIATELY. DENIES DIZZINESS OR SOB. NO RESPIRATORY DISTRESS NOTED. WILL CONTINUE TO MONITOR.
--- NOTE | 2019-01-27 17:09 | NUR ---
CASE MANAGEMENT:REVIEW 01/27/19 SI: AC/CHR ENCEPHALOPATHY HTN URGENCY. LUNG NODULE. PREVIOUS CVA T 97.1 HR 63 RR 17 B/P 149/79 SATS 98% ON RA NO LABS TODAY IS: IV VANCOMYCIN Q8H RISPERDAL PO QHS ASA PO QD COREG PO Q12H FLOMAX PO QHS LOVENOX SQ Q24H LISINOPRIL PO BID HYDRALAZINE PO Q6HRS : MED/SURG STATUS
[2019-01-27] MEDS: Enoxaparin 40mg Inj SUBQ SCH (17:11)
--- NOTE | 2019-01-27 19:11 | NUR ---
NURSE NOTES: Received patient in bed, awake, alert, oriented, able to make his needs known, VSS, afebrile.Call light is within reach, bed is in low position, locked and alarm is on, will continue to monitor for for safety and comfort.
--- NOTE | 2019-01-27 19:12 | NUR ---
HAND-OFF: Report given to Deven BOOTH RN.
[2019-01-27] MEDS: Tamsulosin 0.4mg cap ORAL SCH (20:09)
[2019-01-28] VITALS (7 sets, daily range): BP systolic 131–160; BP diastolic 68–95
[2019-01-28] MEDS: HydrALAZINE 25mg tab ORAL SCH ×2 (05:47→16:28)
--- NOTE | 2019-01-28 06:54 | NUR ---
HAND-OFF: Report given to Callie CHANDRA.
--- NOTE | 2019-01-28 07:10 | NUR ---
NURSE NOTES: Received patient in bed sitting on the edge of the bed eating, patient awake, alert, oriented x 4, no sign of distress, ambulatory with help of a walker, Patient is able to make his needs known.on fall precaution Call light is within reach, bed is in low position, locked and alarm is on.4Ps in progress call light w/n reach [facility]
[2019-01-28] MEDS: Lisinopril 10mg tab ORAL SCH ×2 (08:04→17:03)
[2019-01-28] MEDS: Aspirin EC 325mg tab ORAL SCH (08:04)
[2019-01-28] MEDS: Carvedilol 12.5mg tab ORAL SCH ×2 (08:04→21:30)
--- NOTE | 2019-01-28 08:45 | NUR ---
PT WEEKLY PROGRESS NOTE Patient has been participating with PT intervention. Patient demonstrating improvement in functional mobility and endurance. Patient able to transfer with SBA and to ambulate 300 ft with SBA without assistive device. Patient able to negotiate 3 stairs holding one rail with Addendum: 01/28/19 at 1339 by ARIELLA BAILEY PT with SBA. Patient will continue to benefit from skilled inpatient PT intervention to address balance, safety and functional mobility.
--- NOTE | 2019-01-28 09:29 | Pulmonology Progress Note ---
Assessment/Plan Assessment/Plan IMPRESSION: 1. Previous CVA. 2. Lung nodule. 3. Hypertensive urgency. 4. 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 Objective Last 24 Hour Vital Signs Date Time Temp Pulse Resp B/P (MAP) Pulse Ox O2 Delivery O2 Flow Rate FiO2 01/28/19 08:06 Room Air 01/28/19 08:04 155/87 01/28/19 08:04 73 155/87 01/28/19 08:03 96.3 73 18 155/87 (109) 01/28/19 05:47 155/95 01/28/19 04:00 97.8 61 18 155/95 (115) 01/28/19 00:00 97.3 67 14 131/85 (100) 01/27/19 21:00 Room Air 01/27/19 20:33 98.2 72 18 164/86 (112) 01/27/19 20:09 87 164/86 01/27/19 18:31 163/89 01/27/19 18:27 79 163/89 (113) 01/27/19 17:05 184/97 01/27/19 16:01 184/97 01/27/19 16:00 97.5 59 18 184/97 (126) 98 01/27/19 11:45 97.1 63 17 149/79 (102) 98 Intake and Output 01/27/19 01/28/19 19:00 07:00 Intake Total 240 ml Balance 240 ml Intake Oral 240 ml # Bowel Movements 1 General Appearance: no acute distress HEENT: normocephalic Respiratory/Chest: chest wall non-tender, lungs clear Cardiovascular: normal peripheral pulses, normal rate Abdomen: normal bowel sounds Current Medications Medications (Trade) Dose Ordered Sig/Randall Route PRN Reason Start Time Stop Time Status Last Admin Dose Admin Aspirin (Ecotrin) 325 mg DAILY ORAL 01/21/19 09:00 02/14/19 08:59 01/28/19 08:04 Carvedilol (Coreg) 12.5 mg EVERY 12 HOURS ORAL 01/20/19 21:00 02/18/19 09:14 01/28/19 08:04 Clonidine HCl (Catapres Tab) 0.1 mg Q4H PRN ORAL SBP>150 mmHg 01/20/19 17:45 02/13/19 17:44 01/27/19 18:31 Dextrose (Dextrose 50%) 25 ml Q30M PRN IV Hypoglycemia 01/20/19 17:45 02/13/19 16:44 Dextrose (Dextrose 50%) 50 ml Q30M PRN IV Hypoglycemia 01/20/19 17:45 02/13/19 16:44 Enoxaparin Sodium (Lovenox) 40 mg Q24H SUBQ 01/20/19 18:00 02/13/19 17:44 01/27/19 17:11 Hydralazine HCl (Apresoline) 25 mg BIAC ORAL 01/25/19 06:30 02/24/19 06:29 01/28/19 05:47 Lisinopril (Zestril) 30 mg BID ORAL 01/23/19 18:00 02/22/19 17:59 01/28/19 08:04 Risperidone (RisperDAL) 6 mg BEDTIME ORAL 01/23/19 21:00 02/22/19 20:59 01/27/19 20:07 Tamsulosin HCl (Flomax) 0.4 mg QHS ORAL 01/20/19 21:00 02/18/19 20:59 01/27/19 20:09 Jarod Marie MD Jan 28, 2019 09:29
--- NOTE | 2019-01-28 09:36 | NUR ---
CASE MANAGEMENT:REVIEW 01/28/19 SI: AC/CHR ENCEPHALOPATHY HTN URGENCY. LUNG NODULE. PREVIOUS CVA 96.3 73 18 155/87 98% ON RA IS: HYDRALAZINE PO BID RISPERDAL PO QHS LISINOPRIL PO BID ASA PO QD COREG PO Q12 FLOMAX PO QHS LOVENOX SQ Q24 : MED/SURG STATUS DCP: ? PLAN: DISCHARGE DISPOSITION UNCLEAR AT THIS TIME PATIENT DOES NOT HAVE ANY FAMILY IN THIS COUN[place] PATIENT DOES NOT HAVE ANY SOURCE OF INCOME PATIENT DOES NOT HAVE INSURANCE
--- NOTE | 2019-01-28 09:39 | NUR ---
DISCHARGE PLANNING DISCHARGE DISPOSITION UNCLEAR AT THIS TIME PATIENT DOES NOT HAVE ANY FAMILY IN THIS COUNTRY PATIENT DOES NOT HAVE ANY SOURCE OF INCOME PATIENT DOES NOT HAVE INSURANCE OUR [facility] [employer] ASS[employer]IATE IS TRYING TO APPLY FOR [facility] (MULTIPLE BARRIERS)
--- NOTE | 2019-01-28 09:52 | NUR ---
Social Service Note SW referred patient to the following: [facility] [phone] (p) [phone] (f) [facility] [phone] Referrals pending review.
[2019-01-28] MEDS: Enoxaparin 40mg Inj SUBQ SCH (17:04)
--- NOTE | 2019-01-28 19:10 | NUR ---
NURSE NOTES: Received report from PRATEEK Ledesma. Patient is in bed sleeping, in room air with no signs of distress or SOB. IV is intact. Bed is in lowest position with call alarm within easy reach. Will continue to monitor the patient.
--- NOTE | 2019-01-28 19:15 | NUR ---
HAND-OFF: Report given to PRATEEK Cruz., resting comfortably, patient free from injury prateek amin
[2019-01-28] MEDS: Tamsulosin 0.4mg cap ORAL SCH (21:30)
[2019-01-29] VITALS (10 sets, daily range): BP systolic 148–171; BP diastolic 68–100
--- NOTE | 2019-01-29 04:17 | NUR ---
NURSE NOTES: Patient's BP 171/100, pulse 63. Administered Clonidine 0.1mg PRN as ordered. Patient is alert and answers appropriately. Denies and SOB or dizziness at this time. Will continue to monitor the patient.
--- NOTE | 2019-01-29 05:04 | NUR ---
Rechecked patient at 0500. BP is now 148/78. Will continue to monitor.
[2019-01-29] MEDS: HydrALAZINE 25mg tab ORAL SCH ×2 (06:20→16:22)
--- NOTE | 2019-01-29 07:17 | NUR ---
NURSE NOTES: Received patient in bed patient awake, alert, oriented x 4, no sign of distress, ambulatory with steady gait, Patient is able to make his needs known.on fall precaution Call light is within reach, bed is in low position, locked and alarm is on.4Ps in progress call light w/n reach [facility]
--- NOTE | 2019-01-29 07:38 | NUR ---
HAND-OFF: Report given to PRATEEK Ledesma.
[2019-01-29] MEDS: Carvedilol 12.5mg tab ORAL SCH (08:07)
[2019-01-29] MEDS: Aspirin EC 325mg tab ORAL SCH (08:07)
[2019-01-29] MEDS: Lisinopril 10mg tab ORAL SCH ×2 (08:07→17:05)
--- NOTE | 2019-01-29 09:19 | NUR ---
CASE MANAGEMENT:REVIEW 01/29/19 SI: AC/CHR ENCEPHALOPATHY HTN URGENCY. LUNG NODULE. PREVIOUS CVA 97.3 72 18 170/90 98% ON RA IS: HYDRALAZINE PO BID RISPERDAL PO QHS LISINOPRIL PO BID ASA PO QD COREG PO Q12 FLOMAX PO QHS LOVENOX SQ Q24 : MED/SURG STATUS DCP: ? PLAN: DISCHARGE DISPOSITION UNCLEAR AT THIS TIME PATIENT DOES NOT HAVE ANY FAMILY IN THIS [place] PATIENT DOES NOT HAVE ANY SOURCE OF INCOME PATIENT DOES NOT HAVE INSURANCE
--- NOTE | 2019-01-29 09:33 | Pulmonology Progress Note ---
Assessment/Plan Assessment/Plan IMPRESSION: 1. Previous CVA. 2. Lung nodule. 3. Hypertensive urgency. 4. 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 Objective Last 24 Hour Vital Signs Date Time Temp Pulse Resp B/P (MAP) Pulse Ox O2 Delivery O2 Flow Rate FiO2 01/29/19 09:25 164/80 01/29/19 09:22 164/80 (108) 01/29/19 08:20 Room Air 01/29/19 08:07 138/65 01/29/19 08:07 63 138/65 01/29/19 08:00 97.3 72 18 170/90 (116) 98 01/29/19 06:20 138/65 01/29/19 05:00 148/78 (101) 01/29/19 04:13 171/100 01/29/19 04:00 97.0 63 18 171/100 (123) 100 01/29/19 00:00 97.5 61 18 148/79 (102) 99 01/28/19 21:30 64 160/72 01/28/19 21:00 Room Air 01/28/19 20:00 98.4 64 18 160/72 (101) 98 01/28/19 17:03 148/80 01/28/19 16:28 148/80 01/28/19 15:55 98.0 62 18 148/80 (102) 98 01/28/19 13:10 140/68 (92) 01/28/19 12:03 157/82 01/28/19 11:32 96.9 71 18 157/82 (107) 98 Intake and Output 01/28/19 01/29/19 19:00 07:00 Intake Total 850 ml 480 ml Balance 850 ml 480 ml Intake Oral 850 ml 480 ml # Voids 3 4 General Appearance: no acute distress HEENT: normocephalic Respiratory/Chest: chest wall non-tender Cardiovascular: normal peripheral pulses, normal rate Abdomen: normal bowel sounds Current Medications Medications (Trade) Dose Ordered Sig/Randall Route PRN Reason Start Time Stop Time Status Last Admin Dose Admin Aspirin (Ecotrin) 325 mg DAILY ORAL 01/21/19 09:00 02/14/19 08:59 01/29/19 08:07 Carvedilol (Coreg) 12.5 mg EVERY 12 HOURS ORAL 01/20/19 21:00 02/18/19 09:14 01/29/19 08:07 Clonidine HCl (Catapres Tab) 0.1 mg Q4H PRN ORAL SBP>150 mmHg 01/20/19 17:45 02/13/19 17:44 01/29/19 09:25 Dextrose (Dextrose 50%) 25 ml Q30M PRN IV Hypoglycemia 01/20/19 17:45 02/13/19 16:44 Dextrose (Dextrose 50%) 50 ml Q30M PRN IV Hypoglycemia 01/20/19 17:45 02/13/19 16:44 Enoxaparin Sodium (Lovenox) 40 mg Q24H SUBQ 01/20/19 18:00 02/13/19 17:44 01/28/19 17:04 Hydralazine HCl (Apresoline) 25 mg BIAC ORAL 01/25/19 06:30 02/24/19 06:29 01/29/19 06:20 Lisinopril (Zestril) 30 mg BID ORAL 01/23/19 18:00 02/22/19 17:59 01/29/19 08:07 Risperidone (RisperDAL) 6 mg BEDTIME ORAL 01/23/19 21:00 02/22/19 20:59 01/28/19 21:31 Tamsulosin HCl (Flomax) 0.4 mg QHS ORAL 01/20/19 21:00 02/18/19 20:59 01/28/19 21:30 Jarod Marie MD Jan 29, 2019 09:33
--- NOTE | 2019-01-29 10:59 | NUR ---
[employer]GY [employer]ES [employer] Co-signature Notes: Reviewed patient's file. Reviewed and approved [employer] notes Addendum: 01/29/19 at 1059 by YVONNE COON PT,MG Amended: Links added.
--- NOTE | 2019-01-29 11:40 | NUR ---
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
--- NOTE | 2019-01-29 11:55 | NUR ---
NURSE NOTES Charge nurse Sera made aware regarding patient BP , But per CN Dr Marie stated ok patient to discharge to recuperative, .alfredo amin
--- NOTE | 2019-01-29 11:55 | NUR ---
RD ASSESSMENT & RECOMMENDATIONS SEE CARE ACTIVITY FOR COMPLETE ASSESSMENT DAILY ESTIMATED NEEDS: Needs based on Cardiac, 59kg 25-30 kcals/kg 2875-2210 total kcals 1-1.3 g protein/kg 59-77 g total protein 25-30 mL/kg 6311-4095 total fluid mLs NUTRITION DIAGNOSIS: Decreased sodium intake needs R/T cardiac hx as evidenced by h/o CVA, admitted w/ hypertensive emergency w/ BP of 243/161-> now improved. (CURRENT DIET: REGULAR) PO DIET RECOMMENDATIONS-->> LOW NA/ texture as tolerated or per REPAIRER RECREATIONAL VEHICLE ADDITIONAL RECOMMENDATIONS: * Standing wt for accurate CBW * Consider REPAIRER RECREATIONAL VEHICLE eval for appropriate texture: h/o CVA - eval noted. * Updated labs as able
--- NOTE | 2019-01-29 12:00 | NUR ---
NURSE NOTES PATIENT BP HIGH PATIENT KNEW THE PLAN F CARE, PATIENT REFUSED TO GO TO [facility], EXPLAINED PATIENT WILL PROVIDE MEDICATION FOR 1 MONTH BUT STILL REFUSED TO BE TRANSFERRED PRATEEK DALE
--- NOTE | 2019-01-29 12:17 | Progress Note ---
DATE: 01/23/2019 SUBJECTIVE: The patient is in bed, in no acute distress. Continues to have episodes of agitation. The patient is not [employer] identified the patient. The patient MENTAL STATUS EXAMINATION: The patient is alert, still confused. Mood is neutral. Affect is flat. Thought process is disorganized. Thought content, no suicidal or homicidal ideation. ASSESSMENT: Schizophrenia. PLAN: 1. The patient will be discharged with a followup plan with a psychiatrist. 2. We will continue the risperidone. 3. We will increase medications risperidone to 6 mg p.o. at bedtime. 4. The patient is not in a danger to self or others. Ivonne York M.D. DR: Marissa JOB#: [id number] CC: MICHAEL
--- NOTE | 2019-01-29 12:30 | NUR ---
Social Service Note JENNIFER met with patient multiple times throughout the day to discussed impending [facility]. Patient's friend Harshil Mota at bedside during one of the discussions regarding placement. Patient was alert and oriented during discussion. Patient able to articulate discussion with SW yesterday regarding placement. Patient states he is not in agreement with placement today. Patient states he has lived on the streets for over a year and was surviving fine. 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 Friends also stated that they would assist with locating placement closer to them in [place] and would visit him at [facility] often. Patient continued to refuse services. Patient states he is aware where he can sleep at night, obtain food and medical care if needed. Patient welcomed his friends to visit him on the streets. Patient states he feels safe on the streets. Patient receptive to discharge medications and resources for mental health and community care clinics. Patient got dressed and was ambulating in his room independently. Charge nurse will contact Dr. Marie.
--- NOTE | 2019-01-29 14:20 | NUR ---
nurse notes Per Malathi Charge Nurse ok to discharge patient to street per Dr Marie, nursing supervisor paper products and child protective services social worker aware regarding patient decision patient refused recuperative, prefer to go back to street, home meds delivered at bedside by pharmacy specialist,, home meds instruction instructed to patient all guestions answered verbalized understanding, patient homeless check list done, resources for clinic , hospital and urgent care pamphlet handed to patient , refused token, patient wearing his own street clothes, discharge instruction packet handed to patient, all questions answered verbalized understanding, HL and ID band removed PRATEEK DALE
[2019-01-29] MEDS: Enoxaparin 40mg Inj SUBQ SCH (17:09)
--- NOTE | 2019-01-29 17:38 | NUR ---
nurse notes patient ate his dinner, v/s stable,ready for discharged 1739 discharged to home with self care ordered, but patient prefer to go to street, all belongings taken, accompanied to lobby in stable condition, kept clean dry and comfortable in bed, needs met and anticipated alfredo amin
--- NOTE | 2019-01-29 22:30 | Progress Note ---
DATE: 01/29/2019 SUBJECTIVE: The patient is doing well. Sitting in bed, would like to be discharged. The patient is able to have a rational conversation. No behavior issues. Calm. The patient is able to understand, process, communicate, and appreciate information given to her in regards to her medical condition. MENTAL STATUS EXAMINATION: The patient is alert and oriented times self, place, and situation. He knew the date and the year and month. Mood is neutral. Affect is flat. Thought process, there is a paucity of thought content. Thought content, no suicidal or homicidal ideation. ASSESSMENT: Anxiety disorder and depression. PLAN: 1. We will continue current medication. Provide the patient with reality orientation and supportive therapy. 2. The patient may be discharged. He has capacity to make decisions. He is not holdable. Ivonne York M.D. DR: JANE JOB#: [id number] CC:
--- NOTE | 2019-01-30 07:54 | Discharge Summary ---
Discharge Summary Discharge Summary _ DATE OF ADMISSION: 01/14/2019 DATE OF DISCHARGE: 01/29/2019 DISCHARGED BY: Dr. Marie REASON FOR ADMISSION: 59 years old male was brought by paramedics due to hypertension Patient initially refused to answer any question. He appeared to be confused and unable to provide any meaningful information. Blood pressure was elevated to 243/161. Laboratory work-up revealed no leukocytosis, stable hemoglobin and hematocrit. Sodium 150. BUN 30, creatinine 1.5. Troponin elevated 0.073. EKG revealed normal sinus rhythm, no acute ischemic changes. Lactic acid 1.2. Urine toxicology screen was negative. Serum alcohol , salicylate, and Tylenol were all negative. Urinalysis revealed +3 protein , +2 ketones , +2 blood , no evidence of urinary tract infection. CT of the head demonstrated age-related volume loss and chronic microvascular ischemic changes. Old basal ganglia lacunar infarcts bilaterally. 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 No evidence of acute intracranial bleeding or mass-effect. Chest x-ray demonstrated questionable right midlung nodule. Antihypertensive were given in the emergency room . Systolic blood pressure came down to 201 from 240. Patient subsequently admitted to stepdown unit for further management. CONSULTANTS: boom worker Dr.De Brennan psychiatrist [facility]: Patient admitted to direct observational unit. Patient was closely monitored. Patient started on the IV fluids , repeated 36. Dispatcher Motor Vehicle followed for assistance with blood pressure control. Blood pressure was managed with lisinopril , hydralazine and Coreg. Clonidine was on board as needed DVT prophylaxis provided. Patient started on antiplatelet therapy with aspirin. Telemetry continued to show sinus rhythm, no acute ischemic changes. Lipid panel revealed elevated LDL 135, low HDL 34. Patient declines to start statin. Patient was educated on low-fat low-cholesterol diet. Hypertensive urgency resolved with current antihypertensive regimen. Prior to discharge pressure 149/68. Renal parameters and electrolytes were closely monitored. Electrolytes corrected as needed. Nephrotoxins were avoided. With IV hydration BUN down to 24 and creatinine 1.0. Sodium 143. Psychiatric evaluation was requested. Psychiatrist optimized psychiatric medication regimen. Per psychiatrist, patient had anxiety disorder and depression. Patient provided with reality orientation and supportive therapy. Per psychiatrist, patient had capacity to make decision and was not holdable. pattern layout worker met with patient. Patient was alert and oriented during discussion and was able to discuss placement issue. Patient was explained recuperative program benefits and possibility for long- term housing. At this time patient refused services. Patient reported that he felt safe on the streets and declined any placement issues. Resources for mental health community care clinic provided. Patient subsequently was discharged . FINAL DIAGNOSES: Acute on chronic encephalopathy , hypertensive versus toxic metabolic Hypertensive urgency- resolved History of prior CVA Lung nodule DISCHARGE MEDICATIONS: See Medication Reconciliation list. DISCHARGE INSTRUCTIONS: Patient was discharged. Resources for mental health community care clinics provided. I have been assigned to dictate discharge summary for this account. I was not involved in the patient's management. Vanessa Chaidez NP Jan 30, 2019 07:54
== END 2019-01-29 17:37 | disposition home or self-care (01) | DRG 304 ==
LOC: EDBD 08:26 → EMR 09:20 → ICU 09:33 → EDBD 09:33 → EDBEDREQSVC 09:42 → EDBEDREQ 09:42 → 2W 12:33 → 2E 14:41 → 4E 01-20 17:28
DX: I16.0 Hypertensive urgency (principal); G92 Toxic encephalopathy; I67.4 Hypertensive encephalopathy; F20.1 Disorganized schizophrenia; Z86.73 Personal history of transient ischemic attack (TIA), and cerebral infarction without residual deficits; R91.1 Solitary pulmonary nodule; Z59.0 Homelessness; F41.9 Anxiety disorder, unspecified; F32.9 Major depressive disorder, single episode, unspecified
CPT/HCPCS: 36415; 70450; 71045; 74018; 80048; 80053; 80061; 80307; 80329; 81003; 82140; 82248; 82550; 83605; 83735; 84443; 84484; 85025; 85610; 85730; 87081; 93005; 96361; 96374; 96375; 99291